=== PATIENT | male | born 1955 | race Caucasian/White ===

== ENCOUNTER 2017-08-15 17:35 | Inpatient (IN) | payer MEDICARE ==
[2017-08-15] MEDS ORDERED: NORMAL SALINE 1000 ML 1,000 ML IV ONE (17:40)
--- NOTE | 2017-08-15 17:43 | ER Document Report ---
ED Respiratory Problem - General Mode of Arrival: Medic Information source: Patient, Emergency Med Personnel TRAVEL OUTSIDE OF THE [place] IN LAST 30 DAYS: No - HPI Patient complains to provider of: Other - see notes above Onset: This morning Associated symptoms: Other - see notes above <TYSON ABEBE - Last Filed: 08/15/17 20:12> <KALIKAMAR GINNY - Last Filed: 08/16/17 01:18> - General Chief Complaint: Respiratory Distress Stated Complaint: RESPIRATORY DISTRESS Time Seen by Provider: 08/15/17 17:40 Notes: 61 year old male with history of hypertension and back surgery presents to the ED via EMS initially unresponsive and on a non-rebreather. EMS reports that the patient was unresponsive and had a green-brown froth at this mouth when they first arrived. Patient stating at 70% initially with improvement to 98% with a non-rebreather. Patient was occasionally twitching, but was not alert. Family states that the patient has overdosed on morphine in the past due to his back pain. EMS gave 1 mg Narcan. Upon moving the patient from EMS stretcher to ED bed, the patient became alert and orientated. (TYSON ABEBE) - Related Data Allergies/Adverse Reactions: No Known Allergies Allergy (Verified 08/15/17 19:55) Home Medications: Current Home Medications Gabapentin [Neurontin 400 mg Capsule] 800 mg PO QHS 08/15/17 [History] Morphine Sulfate 15 mg PO BID 08/15/17 [History] Morphine Sulfate [Morphine Sulfate ER] 15 mg PO Q8 08/15/17 [History] Morphine Sulfate/Naltrexone [Embeda ER 20-0.8 mg Capsule] 20 mg PO BID 08/15/17 [History] Morphine Sulfate/Naltrexone [Embeda ER 20-0.8 mg Capsule] 20 mg PO Q12 08/15/17 [History] Past Medical History - General Information source: Patient - Social History Smoking Status: Unknown if Ever Smoked Family History: Reviewed & Not Pertinent - Past Medical History Cardiac Medical History: Reports: Hx Hypertension Denies: Hx Coronary Artery Disease, Hx Heart Attack Pulmonary Medical History: Denies: Hx Asthma, Hx Bronchitis, Hx COPD, Hx Pneumonia Neurological Medical History: Denies: Hx Cerebrovascular Accident, Hx Seizures Musculoskeltal Medical History: Denies Hx Arthritis Past Surgical History: Reports: Hx Orthopedic Surgery - Back Surgery x6 - Immunizations Hx Diphtheria, Pertussis, Tetanus Vaccination: No Hx Pneumococcal Vaccination: 08/17/11 <TYSON ABEBE - Last Filed: 08/15/17 20:12> Review of Systems - Review of Systems Constitutional: No symptoms reported EENT: No symptoms reported Cardiovascular: No symptoms reported Respiratory: See HPI, Other - respiratory distress Gastrointestinal: No symptoms reported Genitourinary: No symptoms reported Male Genitourinary: No symptoms reported Musculoskeletal: No symptoms reported Skin: No symptoms reported Hematologic/Lymphatic: No symptoms reported Neurological/Psychological: No symptoms reported -: Yes All other systems reviewed and negative <TYSON ABEBE - Last Filed: 08/15/17 20:12> Physical Exam - Vital signs Interpretation: Hypotensive, Tachycardic, Hypoxic, Febrile - General General appearance: Lethargic - HEENT Head: Normocephalic, Atraumatic Cornea: Normal Extraocular movements intact: Yes Mucous membranes: Dry, Other - Green sputum on tongue - Respiratory Breath sounds: Decreased air movement, Rales - Cardiovascular Rhythm: Regular, Tachycardia - Abdominal Inspection: Normal Tenderness: Nontender - Extremities General upper extremity: Normal strength General lower extremity: Normal strength - Neurological Cognition: Confused [place] Coma Scale Eye Opening: Spontaneous Aravind Coma Scale Verbal: Confused [place] Coma Scale Motor: Obeys Commands [place] Coma Scale Total: 14 - Skin Skin Temperature: Hot Skin Moisture: Dry <KAMAR BASS - Last Filed: 08/16/17 01:18> - Vital signs Vitals: Temp Pulse Resp BP Pulse Ox 100.0 F 119 H 18 94/56 L 96 08/15/17 17:35 08/15/17 17:35 08/15/17 17:35 08/15/17 17:35 08/15/17 17:35 Course - Laboratory Result Diagrams: 08/15/17 17:54 08/15/17 17:54 - Consults Brian Su Time consulted: 18:55 Dr. Denton Time consulted: 19:59 <TYSON ABEBE - Last Filed: 08/15/17 20:12> - Laboratory Result Diagrams: 08/15/17 17:54 08/15/17 21:08 <KAMAR BASS - Last Filed: 12/31/17 01:18> - Re-evaluation Re-evalutation: 08/15 Patient is a 61-year-old male who has been unresponsive for most of the day. Patient is febrile, tachycardic, and hypoxic on presentation. Patient will be given Narcan and bagged before coming in by EMS. He had been unresponsive for EMS but was more responsive in the emergency department albeit confused. Patient was treated on fluids. Blood work is showing acute renal insufficiency as well as rhabdomyolysis. Patient has a right-sided pneumonia and appears septic. Patient was discussed with Brian Su due to lack of nephrology. However, the patient is making urine and creatinine injury resolving. The patient does not want to be transferred and will be admitted to the hospitalist service here. He has been given antibiotics and fluids. His mentation is much improved although he has been persistently hypotensive. After 3 L of fluid pressures are 100s over 60s. Patient is in no respiratory distress and is resting on nasal cannula. Discussed with the hospitalist service will be admitted to the ICU. (KAMAR BASS) - Vital Signs Vital signs: Temp Pulse Resp BP Pulse Ox 101.1 F H 119 H 23 H 79/47 L 100 08/15/17 18:26 08/15/17 17:35 08/15/17 18:54 08/15/17 18:54 08/15/17 18:54 - Laboratory Laboratory results interpreted by me: 08/15/17 08/15/17 08/15/17 17:54 17:54 17:54 WBC 12.0 H RBC 4.30 L Hgb 13.3 L RDW 14.1 H Seg Neutrophils % 81.4 H Lymphocytes % 11.0 L Absolute Neutrophils 9.8 H VBG pH VBG HCO3 Chloride Carbon Dioxide 21 L BUN 43 H Creatinine 6.87 H Est GFR ( Amer) 10 L Est GFR (Non-Af Amer) 8 L Glucose Lactic Acid 2.2 H Calcium Phosphorus AST 327 H ALT 82 H Creatine Kinase 85443 H Urine Protein Urine Urobilinogen 08/15/17 08/15/17 08/15/17 18:26 21:08 21:08 WBC RBC Hgb RDW Seg Neutrophils % Lymphocytes % Absolute Neutrophils VBG pH VBG HCO3 Chloride 109 H Carbon Dioxide 18 L BUN 40 H Creatinine 5.54 H Est GFR ( Amer) 13 L Est GFR (Non-Af Amer) 11 L Glucose 122 H Lactic Acid Calcium 7.3 L Phosphorus 5.3 H AST ALT Creatine Kinase 28296 H Urine Protein 30 H Urine Urobilinogen 2.0 H 08/15/17 22:00 WBC RBC Hgb RDW Seg Neutrophils % Lymphocytes % Absolute Neutrophils VBG pH 7.24 L VBG HCO3 17.7 L Chloride Carbon Dioxide BUN Creatinine Est GFR ( Amer) Est GFR (Non-Af Amer) Glucose Lactic Acid Calcium Phosphorus AST ALT Creatine Kinase Urine Protein Urine Urobilinogen - Consults Brina Su Reason for consultation: 08/15/17 18:55 Brian Su was paged for patient transfer. (TYSON ABEBE) Dr. Denton Reason for consultation: 08/15/17 19:59 Patient was discussed with Dr. Denton who states that she may keep the patient here pending the results of an additional BMP, troponin, and creatinine. (TYSON ABEBE) Critical Care Note - Critical Care Note Total time excluding time spent on procedures (mins): 90 - Evaluation and management of altered mental status, respiratory distress, sepsis, acute renal insufficiency, rhabdomyolysis, multiple re-evaluations, coordination of admission, counseling of patient and family <KAMAR BASS - Last Filed: 08/16/17 01:18> Discharge <TYSON ABEBE - Last Filed: 08/15/17 20:12> - Discharge Admitting Provider: Concepción Denton Unit Admitted: ICU <KAMAR BASS - Last Filed: 08/16/17 01:18> - Discharge Clinical Impression: Pneumonia Qualifiers: Pneumonia type: due to unspecified organism Laterality: right Lung location: lower lobe of lung Qualified Code(s): J18.1 - Lobar pneumonia, unspecified organism ARF (acute renal failure) Qualifiers: Acute renal failure type: unspecified Qualified Code(s): N17.9 - Acute kidney failure, unspecified Sepsis Qualifiers: Sepsis type: sepsis due to unspecified organism Qualified Code(s): A41.9 - Sepsis, unspecified organism Rhabdomyolysis Qualifiers: Rhabdomyolysis type: non-traumatic Qualified Code(s): M62.82 - Rhabdomyolysis Condition: Stable Disposition: ADMITTED INPATIENT Scribe Attestation: 08/16/17 01:18 I personally performed the services described in the documentation, reviewed and edited the documentation which was dictated to the scribe in my presence, and it accurately records my words and actions. (KAMAR BASS) Scribe Documentation - Scribe Written by Scribe:: Turner Cadet, 08/15/2017 1833 acting as scribe for :: Kali <TYSON ABEBE - Last Filed: 08/15/17 20:12>
[2017-08-15 18:18] LABS: INTERNATIONAL RATION (INR) 1.04; PROTHROMBIN TIME 14.4 SEC (11.4-15.4)
[2017-08-15 18:20] LABS: ABSOLUTE LYMPHOCYTES (AUTO) 1.3 10^3/uL (0.5-4.7); ABSOLUTE MONOCYTES (AUTO) 0.9 10^3/uL (0.1-1.4); ABSOLUTE NEUT (AUTO) 9.8 10^3/uL (1.7-8.2); BASOPHILS % (AUTO) 0.2 % (0-2); EOSINOPHILS % (AUTO) 0.1 % (0-6); HEMATOCRIT 39.3 % (37.9-51.0); HEMOGLOBIN 13.3 g/dL (13.5-17.0); MEAN CORPUSCULAR HEMOGLOBIN 30.8 pg (27.0-33.4); MEAN CORPUSCULAR HGB CONC 33.7 g/dL (32.0-36.0); MEAN CORPUSCULAR VOLUME 91 fl (80-97); MONOCYTES % (AUTO) 7.3 % (3-13); PLATELET COUNT 225 10^3/uL (150-450); RED CELL DISTRIBUTION WIDTH 14.1 % (11.5-14.0); SEGMENTED NEUTROPHILS % (AUTO) 81.4 % (42-78); TOTAL CELLS COUNTED % (AUTO) 100 %
[2017-08-15] MEDS ORDERED: NALOXONE HCL INJ 2 MG/2 ML DISP.SYRIN IV ONE (18:26)
[2017-08-15] MEDS ORDERED: NALOXONE HCL INJ 2 MG/2 ML DISP.SYRIN ONE (18:29)
[2017-08-15 18:36] LABS: ALANINE AMINOTRANSFERASE 82 U/L (21-72); ALBUMIN 3.8 g/dL (3.5-5.0); ALKALINE PHOSPHATASE 90 U/L (38-126); ANION GAP 14 (5-19); ASPARTATE AMINO TRANSFERASE 327 U/L (17-59); BILIRUBIN,DIRECT 0.4 mg/dL (0.0-0.4); BILIRUBIN,TOTAL 1.1 mg/dL (0.2-1.3); BLOOD UREA NITROGEN 43 mg/dL (7-20); CALCIUM 8.7 mg/dL (8.4-10.2); CARBON DIOXIDE 21 mmol/L (22-30); CHLORIDE 103 mmol/L (98-107); GLUCOSE 105 mg/dL (75-110); POTASSIUM 4.5 mmol/L (3.6-5.0); SODIUM 137.7 mmol/L (137-145); TOTAL PROTEIN 6.9 g/dL (6.3-8.2)
[2017-08-15] MEDS ORDERED: PIPERACILLIN/TAZOBACTAM 3.375 GM VIAL IV ONE (18:53)
[2017-08-15 18:55] LABS: CREATINE KINASE 13010 U/L (55-170)
[2017-08-15] MEDS ORDERED: VANCOMYCIN HCL INJ 1000 MG VIAL IV ONE (18:55)
[2017-08-15] MEDS ORDERED: ACETAMINOPHEN 325 MG TABLET PO ONE (18:55)
[2017-08-15] MEDS ORDERED: ACETAMINOPHEN 325 MG SUPP.RECT PR ONE (18:58)
[2017-08-15] MEDS: NORMAL SALINE 1000 ML 1,000 ML IV PRN (19:04)
[2017-08-15 19:12] LABS: APPEARANCE,URINE SLIGHTLY-CLOUDY; BILIRUBIN,URINE NEGATIVE (NEGATIVE); COLOR,URINE AMBER; GLUCOSE, URINE NEGATIVE (NEGATIVE); KETONES,URINE NEGATIVE (NEGATIVE); LEUKOCYTE ESTERASE,URINE NEGATIVE (NEGATIVE); NITRITE,URINE NEGATIVE (NEGATIVE); PROTEIN,URINE 30 mg/dL (NEGATIVE); URINE SPECIFIC GRAVITY 1.021
--- NOTE | 2017-08-15 19:43 | RADIOLOGY REPORT (SQ) ---
EXAM DESCRIPTION: CHEST SINGLE VIEW COMPLETED DATE/TIME: 08/15/2017 6:59 pm REASON FOR STUDY: cough COMPARISON: None. EXAM PARAMETERS: NUMBER OF VIEWS: One view. TECHNIQUE: Single frontal radiographic view of the chest acquired. RADIATION DOSE: NA LIMITATIONS: Respiratory motion somewhat limits examination. FINDINGS: LUNGS AND PLEURA: No opacities, masses or pneumothorax. No pleural effusion. MEDIASTINUM AND HILAR STRUCTURES: No masses. Contour normal. HEART AND VASCULAR STRUCTURES: Heart normal in size. Normal vasculature. BONES: No acute findings. HARDWARE: Partially imaged ACDF hardware. OTHER: No other significant finding. IMPRESSION: NO ACUTE RADIOGRAPHIC FINDING IN THE CHEST. TECHNICAL DOCUMENTATION: JOB ID: [id number] [employer]- All Rights Reserved
[2017-08-15] MEDS ORDERED: PROMETHAZINE HCL 25 MG TABLET PO PRN (21:38)
[2017-08-15] MEDS ORDERED: LEVALBUTEROL HCL NEB 1.25 MG/3 ML AMPUL NEB PRN (21:38)
[2017-08-15] MEDS ORDERED: ONDANSETRON HCL INJ/PF 4 MG/2 ML SDV IV PRN (21:38)
[2017-08-15] MEDS ORDERED: OXYCODONE-ACETAMINOPHEN 5-325 MG TABLET PO PRN (21:38)
[2017-08-15] MEDS ORDERED: ACETAMINOPHEN 325 MG TABLET PO PRN (21:38)
[2017-08-15 21:40] LABS: ANION GAP 11 (5-19); BLOOD UREA NITROGEN 40 mg/dL (7-20); CALCIUM 7.3 mg/dL (8.4-10.2); CARBON DIOXIDE 18 mmol/L (22-30); CHLORIDE 109 mmol/L (98-107); GLUCOSE 122 mg/dL (75-110); POTASSIUM 4.1 mmol/L (3.6-5.0); SODIUM 137.8 mmol/L (137-145)
[2017-08-15 21:57] LABS: CREATINE KINASE 13972 U/L (55-170)
[2017-08-15] MEDS ORDERED: GABAPENTIN 400 MG CAPSULE PO SCH (22:00)
[2017-08-15 22:13] LABS: MAGNESIUM 1.7 mg/dL (1.6-2.3); PHOSPHORUS 5.3 mg/dL (2.5-4.5)
[2017-08-15] MEDS ORDERED: LIDOCAINE 5% (700 MG) TRANSDERMAL ADH..PATCH TP ONE (22:15)
[2017-08-15 22:21] LABS: VENOUS BLOOD BASE EXCESS -9.3 mmol/L; VENOUS BLOOD HCO3 17.7 mmol/L (20-32); VENOUS BLOOD PCO2 42.4 mmHg (35-63); VENOUS BLOOD PH 7.24 (7.30-7.42)
[2017-08-16] MEDS: NORMAL SALINE 1000 ML 1,000 ML IV PRN ×4 (00:48→08:51)
[2017-08-16] MEDS: HEPARIN SOD (PORCINE) 5,000 UNIT/ML 1 ML SYRINGE SUBCUT SCH ×4 (00:50→21:56)
[2017-08-16] MEDS ORDERED: NORMAL SALINE 1000 ML 1,000 ML IV ONE (00:57)
[2017-08-16] MEDS ORDERED: NOREPINEPHRINE BITARTRATE INJ/PF 4 MG/4 ML SDV IV ONE (01:17)
[2017-08-16] MEDS: IPRATROPIUM/ALBUTEROL 0.5-2.5 MG/3 ML AMPUL NEB SCH ×4 (01:24→19:55)
[2017-08-16] MEDS ORDERED: NOREPINEPHRINE BITARTRATE INJ/PF 4 MG/4 ML SDV IV PRN (01:36)
[2017-08-16] MEDS ORDERED: LIDOCAINE 5% (700 MG) TRANSDERMAL ADH..PATCH TP ONE (01:45)
[2017-08-16] MEDS ORDERED: MAGNESIUM SULFATE/D5W 1 GM/100 ML RTUPB IV ONE (02:36)
[2017-08-16] MEDS ORDERED: PHARMACY COMMUNICATION ORDER MC NR (02:45)
[2017-08-16] MEDS ORDERED: VANCOMYCIN HCL 0 MG in DEXTROSE 5%-WATER 250 ML IV NR (02:45)
[2017-08-16] MEDS ORDERED: PIPERACILLIN/TAZOBACTAM 3.375 GM VIAL IV PRN (02:45)
[2017-08-16] MEDS ORDERED: VANCOMYCIN HCL INJ 1000 MG VIAL IV PRN (02:50)
[2017-08-16] MEDS: PIPERACILLIN SODIUM/TAZOBACTAM 3.375 GM in NORMAL SALINE 100 ML IV SCH ×2 (03:25→09:12)
[2017-08-16] MEDS: DEXTROSE 5%-WATER 250 ML with NOREPINEPHRINE BITARTRATE 4 MG IV PRN ×4 (03:25→08:52)
--- NOTE | 2017-08-16 03:40 | PDOC H&P ---
History of Present Illness Admission Date/PCP: 08/15/2017 Dr. Guadarrama, [facility] History of Present Illness: CARMELA LOMAX is a 61 year old male with past medical history of chronic back pain , hypertension, and diabetes prior to his gastric bypass who presents to the emergency department unresponsive. When I visit patient, he is awake alert and oriented and appropriate. Patient's family was unable to arouse him today. He reports starting on Thursday he noticed that he was significantly weak and unable to walk. He thought his back was acting up. He did report a cough with some yellow brown sputum. He took his normal medications today and became unresponsive. He did require Narcan and some bagging by EMS. The patient was never at a loss for spontaneous circulation. Patient does currently report pain in his back and legs. And that he has been weak and dizzy. He reports he had a normal stress test approximately 6 months ago in [place]. Patient is found to be in acute renal failure, with pneumonia and septic shock requiring admission to the ICU. Past Medical History Cardiac Medical History: Reports: Hypertension Denies: Coronary Artery Disease, Myocardial Infarction Pulmonary Medical History: Denies: Asthma, Bronchitis, Chronic Obstructive Pulmonary Disease (COPD), Pneumonia Neurological Medical History: Denies: Seizures Endocrine Medical History: Reports: Diabetes Mellitus Type 2 - Prior to gastric bypass, Obesity Musculoskeltal Medical History: Reports: Other - Chronic back pain Denies: Arthritis Hematology: Denies: Anemia Past Surgical History Past Surgical History: Reports: Cholecystectomy, Gastric Bypass Surgery, Orthopedic Surgery - Back Surgery x6 Social History Smoking Status: Never Smoker Frequency of Alcohol Use: None Hx Recreational Drug Use: No Hx Prescription Drug Abuse: No - Advance Directive Resuscitation Status: Full Code Surrogate healthcare decision maker:: , Zoya Lomax Family History Family History: CAD, Malignancy, Other - ALS-brother Parental Family History Reviewed: Yes Children Family History Reviewed: Yes Sibling(s) Family History Reviewed.: Yes Medication/Allergy Home Medications: Lisinopril 1 tab PO DAILY 03/08/14 Gabapentin [Neurontin 400 mg Capsule] 800 mg PO QHS 08/15/17 Morphine Sulfate 15 mg PO BID 08/15/17 Morphine Sulfate [Morphine Sulfate ER] 15 mg PO Q8 08/15/17 Morphine Sulfate/Naltrexone [Embeda ER 20-0.8 mg Capsule] 20 mg PO BID 08/15/17 Morphine Sulfate/Naltrexone [Embeda ER 20-0.8 mg Capsule] 20 mg PO Q12 08/15/17 Allergies/Adverse Reactions: No Known Allergies Allergy (Verified 08/15/17 19:55) Review of Systems Constitutional: PRESENT: fatigue, weakness. ABSENT: chills, fever(s), headache( s), weight gain, weight loss Eyes: ABSENT: visual disturbances Ears: ABSENT: hearing changes Cardiovascular: ABSENT: chest pain, dyspnea on exertion, edema, orthropnea, palpitations Respiratory: PRESENT: cough, sputum. ABSENT: dyspnea, hemoptysis Gastrointestinal: ABSENT: abdominal pain, constipation, diarrhea, hematemesis, hematochezia, nausea, vomiting Genitourinary: ABSENT: dysuria, hematuria Musculoskeletal: PRESENT: back pain. ABSENT: joint swelling Integumentary: ABSENT: rash, wounds Neurological: PRESENT: dizziness, weakness. ABSENT: abnormal gait, abnormal speech, confusion, focal weakness, syncope Psychiatric: ABSENT: anxiety, depression, homidical ideation, suicidal ideation Endocrine: ABSENT: cold intolerance, heat intolerance, polydipsia, polyuria Hematologic/Lymphatic: ABSENT: easy bleeding, easy bruising Physical Exam Vital Signs: Temp Pulse Resp BP Pulse Ox 101.1 F H 119 H 23 H 79/47 L 100 08/15/17 18:26 08/15/17 17:35 08/15/17 18:54 08/15/17 18:54 08/15/17 18:54 Intake & Output 08/14/17 08/15/17 08/16/17 06:59 06:59 06:59 Weight 106.5 kg General appearance: PRESENT: mild distress, obese, well-developed, well- nourished Head exam: PRESENT: atraumatic, normocephalic Eye exam: PRESENT: conjunctival injection, conjunctiva pink, EOMI, PERRLA. ABSENT: scleral icterus Ear exam: PRESENT: normal external ear exam Mouth exam: PRESENT: dry mucosa, tongue midline Neck exam: ABSENT: JVD, lymphadenopathy, thyromegaly, tracheal deviation Respiratory exam: PRESENT: rhonchi, symmetrical, unlabored. ABSENT: accessory muscle use, prolonged expiratory phas, rales, tachypnea, wheezes Cardiovascular exam: PRESENT: RRR. ABSENT: diastolic murmur, rubs, systolic murmur Pulses: PRESENT: normal dorsalis pedis pul Vascular exam: PRESENT: normal capillary refill GI/Abdominal exam: PRESENT: normal bowel sounds, soft. ABSENT: distended, guarding, mass, Lin's sign, organolmegaly, rebound, rigid, tenderness Rectal exam: PRESENT: deferred Extremities exam: PRESENT: full ROM. ABSENT: calf tenderness, clubbing, pedal edema Neurological exam: PRESENT: alert, awake, oriented to person, oriented to place , oriented to time, oriented to situation, CN II-XII grossly intact. ABSENT: motor sensory deficit Psychiatric exam: PRESENT: appropriate affect, normal mood. ABSENT: homicidal ideation, suicidal ideation Skin exam: PRESENT: dry, intact, warm. ABSENT: cyanosis, rash Results Laboratory Results: 08/15/17 17:54 08/15/17 08/15/17 08/15/17 17:54 17:54 17:54 WBC 12.0 H RBC 4.30 L Hgb 13.3 L Hct 39.3 MCV 91 MCH 30.8 MCHC 33.7 RDW 14.1 H Plt Count 225 Seg Neutrophils % 81.4 H Lymphocytes % 11.0 L Monocytes % 7.3 Eosinophils % 0.1 Basophils % 0.2 Absolute Neutrophils 9.8 H Absolute Lymphocytes 1.3 Absolute Monocytes 0.9 Absolute Eosinophils 0.0 Absolute Basophils 0.0 Sodium 137.7 Potassium 4.5 Chloride 103 Carbon Dioxide 21 L Anion Gap 14 BUN 43 H Creatinine 6.87 H Est GFR ( Amer) 10 L Est GFR (Non-Af Amer) 8 L Glucose 105 Lactic Acid 2.2 H Calcium 8.7 Total Bilirubin 1.1 AST 327 H ALT 82 H Alkaline Phosphatase 90 Total Protein 6.9 Albumin 3.8 Urine Color Urine Appearance Urine pH Ur Specific [place] Urine Protein Urine Glucose (UA) Urine Ketones Urine Blood Urine Nitrite Ur Leukocyte Esterase Urine WBC (Auto) Urine RBC (Auto) 08/15/17 18:26 WBC RBC Hgb Hct MCV MCH MCHC RDW Plt Count Seg Neutrophils % Lymphocytes % Monocytes % Eosinophils % Basophils % Absolute Neutrophils Absolute Lymphocytes Absolute Monocytes Absolute Eosinophils Absolute Basophils Sodium Potassium Chloride Carbon Dioxide Anion Gap BUN Creatinine Est GFR ( Amer) Est GFR (Non-Af Amer) Glucose Lactic Acid Calcium Total Bilirubin AST ALT Alkaline Phosphatase Total Protein Albumin Urine Color NOEMY Urine Appearance SLIGHTLY-CLOUDY Urine pH 5.0 Ur Specific [place] 1.021 Urine Protein 30 H Urine Glucose (UA) NEGATIVE Urine Ketones NEGATIVE Urine Blood NEGATIVE Urine Nitrite NEGATIVE Ur Leukocyte Esterase NEGATIVE Urine WBC (Auto) 1 Urine RBC (Auto) 0 08/15/17 08/15/17 17:54 17:54 Creatine Kinase 01507 H Troponin I 0.508 Impressions: Chest X-Ray 08/15/17 17:40 IMPRESSION: NO ACUTE RADIOGRAPHIC FINDING IN THE CHEST. Assessment & Plan - Diagnosis (1) Septic shock Is this a current diagnosis for this admission?: Yes Plan: Patient has received a total of 6 L of normal saline bolus and has had IV fluids running at 200 mL an hour. Patient is still hypotensive with a systolic in the 80s and a map in the low 60s requiring the administration of Levophed. Patient will be placed in the ICU. Patient has been started on broad-spectrum antibiotic therapy for his pneumonia. Maintain map greater than 65. Selected Entries 08/15/17 08/15/17 17:35 17:43 Temperature 100.0 F Pulse Rate [ 119 H Left Finger] Respiratory 22 H Rate Blood Pressure 94/56 L [Right Upper Arm] 08/15/17 08/15/17 08/15/17 17:54 17:54 17:54 WBC 12.0 H Lactic Acid 2.2 H AST 327 H ALT 82 H (2) Pneumonia Qualifiers: Pneumonia type: due to unspecified organism Laterality: right Lung location: lower lobe of lung Qualified Code(s): J18.1 - Lobar pneumonia, unspecified organism Is this a current diagnosis for this admission?: Yes Plan: Place patient on scheduled nebulized treatments and re-evaluate for improvement. PRN Xopenex Place patient on Zosyn and Vancomycin due to his septic shock Obtain sputum culture (3) ARF (acute renal failure) Qualifiers: Acute renal failure type: with acute tubular necrosis Qualified Code(s): N17.0 - Acute kidney failure with tubular necrosis Is this a current diagnosis for this admission?: Yes Plan: Nonoliguric Likely ATN secondary to sepsis and dehydration. Place patient on IV fluids and repeat creatinine repeat creatinine after IV fluid administration in the ED showed improved interval improvement 08/15/17 08/15/17 17:54 21:08 Creatinine 6.87 H 5.54 H (4) Rhabdomyolysis Qualifiers: Rhabdomyolysis type: non-traumatic Qualified Code(s): M62.82 - Rhabdomyolysis Is this a current diagnosis for this admission?: Yes Plan: Monitor patient on telemetry for arrhythmia Check serial CK Monitor patient for electrolyte abnormalities Normal saline at 200 mL/h 08/15/17 08/15/17 17:54 21:08 Creatine Kinase 14843 H 61044 H (5) Elevated troponin I level Is this a current diagnosis for this admission?: Yes Plan: In the setting of sepsis, pneumonia, renal failure and in the absence of chest pain or EKG changes, suspect this is likely secondary to these underlying processes. Will consult cardiology (6) Severe obesity (BMI 35.0-35.9 with comorbidity) Is this a current diagnosis for this admission?: Yes (7) gi ppx Is this a current diagnosis for this admission?: Yes Plan: Prevacid (8) dvt ppx Is this a current diagnosis for this admission?: Yes Plan: Heparin and SCDs (9) Chronic back pain Qualifiers: Back pain location: low back pain Back pain laterality: unspecified Sciatica presence: unspecified whether sciatica present Qualified Code(s): M54.5 - Low back pain; G89.29 - Other chronic pain; G89.29 - Other chronic pain Is this a current diagnosis for this admission?: Yes Plan: At this time, patient understands that we are unable to reinitiate his narcotic therapy due to his blood pressure (10) Chronic prescription opiate use Is this a current diagnosis for this admission?: Yes Plan: Hold narcotics at this time secondary to hypotension (11) Status post gastric bypass for obesity Is this a current diagnosis for this admission?: Yes - Time Time Spent: 50 to 70 Minutes Critical Time spent with patient: 35 or more minutes - Total time spent with patient including patient education, physical examination, discussion with consultants, and formulation of plan was 45 minutes of critical care time. Medications reviewed and adjusted accordingly: Yes - Inpatient Certification Based on my medical assessment, after consideration of the patient's comorbidities, presenting symptoms, or acuity I expect that the services needed warrant INPATIENT care.: Yes I certify that my determination is in accordance with my understanding of Medicare's requirements for reasonable and necessary INPATIENT services [42 CFR 412.3e].: Yes Medical Necessity: Need For IV Fluids, Need For Continuous Telemetry Monitoring , Need for IV Antibiotics Post Hospital Care: D/C Field Insurance Sales Manager Documentation
[2017-08-16] MEDS ORDERED: VANCOMYCIN HCL 2,000 MG in DEXTROSE 5%-WATER 500 ML IV ONE (04:00)
[2017-08-16 04:10] LABS: INTERNATIONAL RATION (INR) 1.22; PROTHROMBIN TIME 16.2 SEC (11.4-15.4)
[2017-08-16 04:18] LABS: ABSOLUTE LYMPHOCYTES (AUTO) 1.1 10^3/uL (0.5-4.7); ABSOLUTE MONOCYTES (AUTO) 1.2 10^3/uL (0.1-1.4); ABSOLUTE NEUT (AUTO) 9.6 10^3/uL (1.7-8.2); BASOPHILS % (AUTO) 0.1 % (0-2); EOSINOPHILS % (AUTO) 0.3 % (0-6); HEMATOCRIT 31.7 % (37.9-51.0); LYMPHOCYTES % (AUTO) 9.4 % (13-45); MEAN CORPUSCULAR HEMOGLOBIN 31.2 pg (27.0-33.4); MEAN CORPUSCULAR HGB CONC 33.9 g/dL (32.0-36.0); MEAN CORPUSCULAR VOLUME 92 fl (80-97); MONOCYTES % (AUTO) 10.1 % (3-13); PLATELET COUNT 170 10^3/uL (150-450); RED BLOOD COUNT 3.44 10^6/uL (4.35-5.55); RED CELL DISTRIBUTION WIDTH 13.8 % (11.5-14.0); SEGMENTED NEUTROPHILS % (AUTO) 80.1 % (42-78); TOTAL CELLS COUNTED % (AUTO) 100 %
[2017-08-16 04:20] LABS: HEMOGLOBIN 10.7 g/dL (13.5-17.0)
[2017-08-16 04:51] LABS: ANION GAP 13 (5-19); BLOOD UREA NITROGEN 40 mg/dL (7-20); CALCIUM 7.4 mg/dL (8.4-10.2); CARBON DIOXIDE 18 mmol/L (22-30); CHLORIDE 109 mmol/L (98-107); GLUCOSE 130 mg/dL (75-110); MAGNESIUM 1.8 mg/dL (1.6-2.3); PHOSPHORUS 5.5 mg/dL (2.5-4.5); SODIUM 139.5 mmol/L (137-145)
[2017-08-16 04:58] LABS: POTASSIUM 3.9 mmol/L (3.6-5.0)
[2017-08-16 05:00] LABS: CREATINE KINASE MB 90.4 ng/mL (<4.55)
[2017-08-16 05:05] LABS: TROPONIN I 0.451 ng/mL
[2017-08-16] MEDS: LANSOPRAZOLE 15 MG TAB.RAP.DR PO SCH (06:44)
--- NOTE | 2017-08-16 08:44 | PDOC PROGRESS REPORT ---
Subjective Progress Note for:: 08/16/17 Subjective:: Patient relates that had been weak and unable to bear weight. He laid down on the couch and his had to slap him because he was unresponsive. His granddaughter check his blood pressure and was not able to get a reading therefore EMS was called. Patient admits that he had been having some productive cough. At the present time feels a lot better when compared to arrival Reason For Visit: SEVERE SEPSIS,PNEUMONIA,RHABDOMYOLYSIS Physical Exam Vital Signs: Temp Pulse Resp BP Pulse Ox 98.1 F 84 8 L 113/59 L 95 08/16/17 06:08 08/16/17 03:03 08/16/17 06:08 08/16/17 06:08 08/16/17 06:08 Intake & Output 08/15/17 08/16/17 08/17/17 06:59 06:59 06:59 Intake Total 8386 Output Total 1250 Balance 7136 Weight 112.1 kg General appearance: PRESENT: no acute distress, morbidly obese Head exam: PRESENT: atraumatic, normocephalic Eye exam: PRESENT: EOMI Ear exam: PRESENT: normal external ear exam Mouth exam: PRESENT: moist Neck exam: PRESENT: full ROM. ABSENT: JVD, tenderness Respiratory exam: PRESENT: clear to auscultation bere Cardiovascular exam: PRESENT: RRR. ABSENT: diastolic murmur, systolic murmur Vascular exam: PRESENT: normal capillary refill GI/Abdominal exam: PRESENT: normal bowel sounds, soft. ABSENT: tenderness Extremities exam: PRESENT: full ROM. ABSENT: joint swelling, pedal edema Neurological exam: PRESENT: alert, awake, oriented to person, oriented to place , oriented to time Psychiatric exam: PRESENT: appropriate affect, normal mood Results Laboratory Results: 08/16/17 03:47 08/16/17 03:47 08/16/17 08/16/17 03:47 03:47 WBC 12.0 H RBC 3.44 L Hgb 10.7 L D Hct 31.7 L MCV 92 MCH 31.2 MCHC 33.9 RDW 13.8 Plt Count 170 Seg Neutrophils % 80.1 H Lymphocytes % 9.4 L Monocytes % 10.1 Eosinophils % 0.3 Basophils % 0.1 Absolute Neutrophils 9.6 H Absolute Lymphocytes 1.1 Absolute Monocytes 1.2 Absolute Eosinophils 0.0 Absolute Basophils 0.0 Sodium 139.5 Potassium 3.9 Chloride 109 H Carbon Dioxide 18 L Anion Gap 13 BUN 40 H Creatinine 5.02 H Est GFR ( Amer) 14 L Est GFR (Non-Af Amer) 12 L Glucose 130 H Calcium 7.4 L Phosphorus 5.5 H Magnesium 1.8 08/16/17 08/16/17 03:47 03:47 Creatine Kinase 42649 H CK-MB (CK-2) 90.40 H Troponin I 0.451 Impressions: Chest X-Ray 08/15/17 17:40 IMPRESSION: NO ACUTE RADIOGRAPHIC FINDING IN THE CHEST. Assessment & Plan - Diagnosis (1) ARF (acute renal failure) Qualifiers: Acute renal failure type: with acute tubular necrosis Qualified Code(s): N17.0 - Acute kidney failure with tubular necrosis Is this a current diagnosis for this admission?: Yes Plan: Continue volume repletion and will trend renal function (2) Chronic back pain Qualifiers: Back pain location: low back pain Back pain laterality: unspecified Sciatica presence: unspecified whether sciatica present Qualified Code(s): M54.5 - Low back pain; G89.29 - Other chronic pain; G89.29 - Other chronic pain Is this a current diagnosis for this admission?: Yes Plan: At the present time stable will use judiciously opioid if needed. (3) Chronic prescription opiate use Is this a current diagnosis for this admission?: Yes Plan: Will use opioids judiciously if needed (4) Elevated troponin I level Is this a current diagnosis for this admission?: Yes Plan: May relate to myocardial oxygen demand ischemia in the setting of septic shock (5) Pneumonia Qualifiers: Pneumonia type: due to unspecified organism Laterality: right Lung location: lower lobe of lung Qualified Code(s): J18.1 - Lobar pneumonia, unspecified organism Is this a current diagnosis for this admission?: Yes Plan: Official chest x-ray report is negative however we will go ahead and order a CT of the chest. Will continue with current antibiotic therapy (6) Rhabdomyolysis Qualifiers: Rhabdomyolysis type: non-traumatic Qualified Code(s): M62.82 - Rhabdomyolysis Is this a current diagnosis for this admission?: Yes Plan: Continue with fluids at current rate and will trend CPK (7) Septic shock Is this a current diagnosis for this admission?: Yes Plan: Improved when compared to admission. Still requiring Levophed and fluids (8) Transaminitis Plan: Concern about ischemic hepatitis in the setting of septic shock. Another possibility may be due to hepatic liver after gastric bypass. Will order a CT of the abdomen (9) Malnutrition following gastrointestinal surgery Is this a current diagnosis for this admission?: Yes Plan: We will consult dietitian - Time Time Spent with patient: 15-24 minutes Medications reviewed and adjusted accordingly: Yes Anticipated discharge: Home - Inpatient Certification Based on my medical assessment, after consideration of the patient's comorbidities, presenting symptoms, or acuity I expect that the services needed warrant INPATIENT care.: Yes I certify that my determination is in accordance with my understanding of Medicare's requirements for reasonable and necessary INPATIENT services [42 CFR 412.3e].: Yes Medical Necessity: Need For IV Fluids, Need for IV Antibiotics
[2017-08-16 09:22] LABS: PHOSPHORUS 4.5 mg/dL (2.5-4.5)
[2017-08-16 09:33] LABS: CREATINE KINASE MB 92.2 ng/mL (<4.55); TROPONIN I 0.319 ng/mL
[2017-08-16] MEDS ORDERED: LIDOCAINE 5% (700 MG) TRANSDERMAL ADH..PATCH TP SCH (10:00)
[2017-08-16] MEDS: DOCUSATE SODIUM 100 MG CAPSULE PO SCH ×2 (10:11→17:47)
--- NOTE | 2017-08-16 10:38 | RADIOLOGY REPORT (SQ) ---
EXAM DESCRIPTION: CT CHEST WITHOUT COMPLETED DATE/TIME: 08/16/2017 9:33 am REASON FOR STUDY: septic shock COMPARISON: None. TECHNIQUE: CT scan performed of the chest without intravenous contrast. Images reviewed with lung, soft tissue and bone windows. Reconstructed coronal and sagittal MPR images reviewed. All images st ored on PACS. All CT scanners at this facility use dose modulation, iterative reconstruction, and/or weight based d osing when appropriate to reduce radiation dose to as low as reasonably achievable (ALARA). [facility]: Dose Right [facility]: CareDose [facility]: Dose Right [facility]: Teradose 4D [facility]: Smart Cumulocity RADIATION DOSE: mGy. LIMITATIONS: No technical limitations. FINDINGS: LUNGS AND PLEURA: Diffuse patchy multifocal ground-glass airspace disease with some tree-i n-bud opacities. No large consolidation, pleural effusion, or pneumothorax. HILAR AND MEDIASTINAL STRUCTURES: No identified masses or abnormal nodes. No obvious aneurysm. HEART AND VASCULAR STRUCTURES: No aneurysm. No pericardial effusion. UPPER ABDOMEN: See separate report of the CT of the abdomen. THYROID AND OTHER SOFT TISSUES: No masses. No adenopathy. BONES: No significant finding. HARDWARE: None in the chest. OTHER: No other significant findings. IMPRESSION: DIFFUSE PATCHY MULTIFOCAL GROUND-GLASS AIRSPACE DISEASE WITH SOME TREE-IN-BUD OPACITIES. DIFFERENTIAL INCLUDES INFECTIOUS/ INFLAMMATORY PNEUMONITIS, ASYMMETRIC PULMONARY EDEMA, AND DEVELOP ING ARDS. TECHNICAL DOCUMENTATION: JOB ID: [id number] Quality ID # [id number]: Final reports with documentation of one or more dose reduction techniques (e.g., Au tomated exposure control, adjustment of the mA and/or kV according to patient size, use of iterative reconstruction technique) 2010 [employer]- All Rights Reserved
--- NOTE | 2017-08-16 10:42 | RADIOLOGY REPORT (SQ) ---
EXAM DESCRIPTION: CT ABD/PELVIS NO ORAL OR IV COMPLETED DATE/TIME: 08/16/2017 9:33 am REASON FOR STUDY: transminits/sepsis COMPARISON: None. TECHNIQUE: CT scan of the abdomen and pelvis performed without intravenous or oral contrast. Images reviewed with lung, soft tissue, and bone windows. Reconstructed coronal and sagittal MPR images revi ewed. All images stored on PACS. All CT scanners at this facility use dose modulation, iterative reconstruction, and/or weight based d osing when appropriate to reduce radiation dose to as low as reasonably achievable (ALARA). [facility]: Dose Right [facility]: CareDose [facility]: Dose Right [facility]: Teradose 4D [facility]: Smart [place] RADIATION DOSE: CT Rad equipment meets quality standard of care and radiation dose reduction techniq ues were employed. CTDIvol: 20.5 mGy. DLP: 1505 mGy-cm.mGy. LIMITATIONS: LIMITED BY LACK OF CONTRAST MATERIAL AND BEAM HARDENING ARTIFACT FROM PATIENT'S UPPER E XTREMITIES AND SURGICAL HARDWARE. FINDINGS: LOWER CHEST: See separate report of the CT of the chest. NON-CONTRASTED LIVER, SPLEEN, ADRENALS: Evaluation limited by lack of IV contrast. No identified sign ificant masses. PANCREAS: No masses. No peripancreatic inflammatory changes. GALLBLADDER: Surgically absent. RIGHT KIDNEY AND URETER: Well circumscribed low density mass(es) statistically most likely to be cyst (s). Assessment limited by lack of iv contrast. No significant calcifications. No hydronephrosis or hydroureter. LEFT KIDNEY AND URETER: No suspicious masses. Assessment limited by lack of IV contrast. No signifi cant calcifications. No hydronephrosis or hydroureter. AORTA AND RETROPERITONEUM: No aneurysm. No retroperitoneal masses or adenopathy. BOWEL AND PERITONEAL CAVITY: No obvious masses or inflammatory changes. No free fluid. APPENDIX: Normal. PELVIS, BLADDER, AND ABDOMINAL WALL:No abnormal masses. No free fluid. Bladder is decompressed with F oley catheter. BONES: No acute fracture or suspicious osseous lesion. Surgical fusion hardware involving all lumbar levels and extending into the sacrum. OTHER: No other significant finding. IMPRESSION: NO DEFINITE ACUTE FINDINGS IDENTIFIED ON THIS NONCONTRAST CT OF THE ABDOMEN AND PELVIS. CHRONIC CHANGES ABOVE. COMMENT: Quality ID # [id number]: Final reports with documentation of one or more dose reduction techniques (e.g., Automated exposure control, adjustment of the mA and/or kV according to patient size, use of iterative reconstruction technique) TECHNICAL DOCUMENTATION: JOB ID: [id number] [employer]- All Rights Reserved
--- NOTE | 2017-08-16 12:47 | EKG REPORT ---
SEVERITY:- BORDERLINE ECG - SINUS RHYTHM VENTRICULAR PREMATURE COMPLEX BORDERLINE T WAVE ABNORMALITIES BORDERLINE PROLONGED QT INTERVAL : Confirmed by: Dang Hackett MD 16-Aug-2017 12:47:21
--- NOTE | 2017-08-16 12:47 | EKG REPORT ---
SEVERITY:- BORDERLINE ECG - SINUS RHYTHM LOW VOLTAGE THROUGHOUT : Confirmed by: Dang Hackett MD 16-Aug-2017 12:47:17
[2017-08-16] MEDS: METHYLPREDNISOLONE INJ 40 MG/1 ML SDV IV SCH ×2 (13:24→21:57)
--- NOTE | 2017-08-16 13:32 | PDOC CONSULTATION ---
Consultation Consult Date: 08/16/17 Attending physician:: BRYCE KIRKLAND Consult reason:: Positive troponin I, hypotension History of Present Illness Admission Date/PCP: 08/15/17 22:11 Patient complains of: Fatigue and tiredness History of Present Illness: CARMELA ANTHONY is a 61 year old male with past medical history of chronic back pain , hypertension, and diabetes prior to his gastric bypass who presents to the emergency department unresponsive. When I visit patient, he is awake alert and oriented and appropriate. Patient's family was unable to arouse him today. He reports starting on Thursday he noticed that he was significantly weak and unable to walk. He thought his back was acting up. He did report a cough with some yellow brown sputum. He took his normal medications today and became unresponsive. He did require Narcan and some bagging by EMS. The patient was never at a loss for spontaneous circulation. Patient does currently report pain in his back and legs. And that he has been weak and dizzy. He reports he had a normal stress test approximately 6 months ago in [place]. Patient is found to be in acute renal failure, with pneumonia and septic shock requiring admission to the ICU. Patient when seen today, looked much improved. He claimed of very high fever and chills. He denied any chest pain. He denied any problems with shortness of breath. He was noted to be on Levophed drip with blood pressure in the low 90s. A stat 2D echo was ordered. Past Medical History Cardiac Medical History: Reports: Hypertension Denies: Coronary Artery Disease, Myocardial Infarction Pulmonary Medical History: Denies: Asthma, Bronchitis, Chronic Obstructive Pulmonary Disease (COPD), Pneumonia Neurological Medical History: Denies: Seizures Endocrine Medical History: Reports: Diabetes Mellitus Type 2 - Prior to gastric bypass, Obesity Musculoskeltal Medical History: Reports: Other - Chronic back pain Denies: Arthritis Hematology: Denies: Anemia Past Surgical History Past Surgical History: Reports: Cholecystectomy, Gastric Bypass Surgery, Orthopedic Surgery - Back Surgery x6 Social History Information Source: Patient Smoking Status: Never Smoker Frequency of Alcohol Use: None Hx Recreational Drug Use: No Drugs: None Hx Prescription Drug Abuse: No - Advance Directive Resuscitation Status: Full Code Surrogate healthcare decision maker:: Patient spouse is the surrogate decision-maker Family History Family History: CAD, Malignancy, Other - ALS-brother Parental Family History Reviewed: Yes Children Family History Reviewed: Yes Sibling(s) Family History Reviewed.: Yes Medication/Allergy Home Medications: Amitriptyline HCl [Elavil 10 Mg Tablet] 10 mg PO QHS 08/16/17 Lisinopril [Prinivil 40 mg Tablet] 40 mg PO DAILY 08/16/17 Morphine Sulfate [Morphine Ir 15 Mg Tablet] 15 mg PO BID MDD SEE PATIENT COMMENTS!! 08/16/17 Morphine Sulfate/Naltrexone [Embeda ER 20-0.8 mg Capsule] 1 each PO Q12 Zolpidem Tartrate [Ambien 5 mg Tablet] 10 mg PO HSP PRN 08/16/17 Allergies/Adverse Reactions: No Known Allergies Allergy (Verified 08/15/17 19:55) Review of Systems Review of Systems: Please see history of present illness and past medical history as wall. Constitutional: Fever and chills reported. Head : No recent chronic headaches, recent head injury. Eyes: No recent eye pain, diplopia, redness, discharge, acute visual changes. Ears: No recent chronic ear pain, acute hearing loss, ear discharge. Oral cavity: No recent ulcerations, bleeding, oral cavity discomfort. Neck: No recent acute neck pain reported. Hematologic: No recent easy bruising or bleeding or hematologic malignancy reported. Lymphatic: No recent lymphatic malignancy, chronic lymphadenopathy reported yet Cardiovascular system review: See history of present illness. Respiratory system review: No recent chronic cough, hemoptysis, blood clots in the lungs reported. Mild Shortness of breath on exertion Gastrointestinal system review: Negative for any recent acute or chronic abdominal pain, hematemesis, melena, recent change in bowel habits. Genitourinary system review: No recent acute or chronic hematuria, flank pain, UTI etc. reported. Skin system review: Negative for any recent abnormal bruising, no rash, no pruritus reported. Neurologic: No prior history of strokes, mini strokes, seizure disorder. Psychologic: No history of major psychosis or major depression reported. Musculoskeletal: Minor aches and pains reported. No acute joint swelling reported. History of chronic back pain which at times can be significant. Endocrine: No recent polyuria, polydipsia, recent heat or cold intolerance. Physical Exam Vital Signs: Temp Pulse Resp BP Pulse Ox 98.2 F 82 19 100/67 97 08/16/17 11:50 08/16/17 11:50 08/16/17 11:50 08/16/17 11:50 08/16/17 11:50 Intake & Output 08/15/17 08/16/17 08/17/17 06:59 06:59 06:59 Intake Total 8386 Output Total 1250 1175 Balance 7136 -1175 Weight 112.1 kg Exam: GENERAL: well-nourished and in no acute distress. Alert and oriented x3 HEAD: Atraumatic, normocephalic. EYES: Pupils equal round and reactive to light, extraocular movements intact, sclera anicteric, conjunctiva are normal. ENT: TMs normal, nares patent, oropharynx clear without exudates. Moist mucous membranes. No oral ulcerations or bleeding gums noted NECK: supple without lymphadenopathy. Trachea is central. No cervical or axillary lymphadenopathy noted. Carotids are 2+, JVD WNL LUNGS: Respiration seems nonlabored, no significant accessory muscle action noted. Breath sounds clear to auscultation bilaterally and equal noted. No wheezes rales or rhonchi noted. No significant dullness noted on percussion. CHEST: Palpation of the chest wall shows no significant chest wall tenderness. No other significant abnormalities noted. HEART: [place] [employer], No PSH, 1/6 JUAQUIN aortic area, 1/6 ivy systolic murmur mitral area, no rubs, no gallops. ABDOMEN: Soft, no significant tenderness appreciated, normoactive bowel sounds. No guarding, no rebound. No rigidity noted . No masses appreciated. EXTREMITIES: Pedal pulses are 1-2+, no calf tenderness noted. No clubbing or cyanosis.trace to 1+ pedal edema noted NEUROLOGICAL: Focused neurological exam showed no significant neurologic deficit. Normal speech, no focal weakness appreciated. PSYCH: Normal mood, normal affect. Judgment and insight within normal limits. SKIN: No significant ecchymosis, rash, ulcerations or signs of pruritus noted. MUSCULOSKELETAL EXAM: No significant joint swelling noted. Results Laboratory Results: 08/16/17 03:47 08/16/17 03:47 08/16/17 08/16/17 08/16/17 03:47 03:47 08:46 WBC 12.0 H RBC 3.44 L Hgb 10.7 L D Hct 31.7 L MCV 92 MCH 31.2 MCHC 33.9 RDW 13.8 Plt Count 170 Seg Neutrophils % 80.1 H Lymphocytes % 9.4 L Monocytes % 10.1 Eosinophils % 0.3 Basophils % 0.1 Absolute Neutrophils 9.6 H Absolute Lymphocytes 1.1 Absolute Monocytes 1.2 Absolute Eosinophils 0.0 Absolute Basophils 0.0 Sodium 139.5 Potassium 3.9 Chloride 109 H Carbon Dioxide 18 L Anion Gap 13 BUN 40 H Creatinine 5.02 H Est GFR ( Amer) 14 L Est GFR (Non-Af Amer) 12 L Glucose 130 H Calcium 7.4 L Phosphorus 5.5 H 4.5 Magnesium 1.8 08/16/17 08/16/17 08/16/17 03:47 03:47 08:46 Creatine Kinase 69387 H 11130 H CK-MB (CK-2) 90.40 H Troponin I 0.451 08/16/17 08:50 Creatine Kinase CK-MB (CK-2) 92.20 H Troponin I 0.319 EKG Comments: Multiple EKGs reviewed showed sinus rhythm with minor nonspecific ST-T wave changes Impressions: Chest X-Ray 08/15/17 17:40 IMPRESSION: NO ACUTE RADIOGRAPHIC FINDING IN THE CHEST. Abdomen/Pelvis CT 08/16/17 00:00 IMPRESSION: NO DEFINITE ACUTE FINDINGS IDENTIFIED ON THIS NONCONTRAST CT OF THE ABDOMEN AND PELVIS. CHRONIC CHANGES ABOVE. Chest CT 08/16/17 00:00 IMPRESSION: DIFFUSE PATCHY MULTIFOCAL GROUND-GLASS AIRSPACE DISEASE WITH SOME TREE-IN-BUD OPACITIES. DIFFERENTIAL INCLUDES INFECTIOUS/ INFLAMMATORY PNEUMONITIS, ASYMMETRIC PULMONARY EDEMA, AND DEVELOPING ARDS. Assessment & Plan - Diagnosis (1) Septic shock Is this a current diagnosis for this admission?: Yes (2) Rhabdomyolysis Qualifiers: Rhabdomyolysis type: non-traumatic Qualified Code(s): M62.82 - Rhabdomyolysis Is this a current diagnosis for this admission?: Yes (3) ARF (acute renal failure) Qualifiers: Acute renal failure type: with acute tubular necrosis Qualified Code(s): N17.0 - Acute kidney failure with tubular necrosis Is this a current diagnosis for this admission?: Yes (4) Elevated troponin I level Is this a current diagnosis for this admission?: Yes (5) Pneumonia Qualifiers: Pneumonia type: due to unspecified organism Laterality: unspecified laterality Lung location: unspecified part of lung Qualified Code(s): J18.9 - Pneumonia, unspecified organism Is this a current diagnosis for this admission?: Yes (6) Status post gastric bypass for obesity Is this a current diagnosis for this admission?: Yes - Notes Notes: Septic shock: This is consistent with patient's clinical presentation with fever and chills. Patient also noted to have pneumonia on CT scan. Continue with broad-spectrum antibiotic. Currently patient maintaining blood pressure and oxygenation with vasopressors and oxygen supplementation. Rhabdomyolysis: Possibly related to high fever and chills. Patient has complication, acute renal failure could be related to it. Patient has been aggressively hydrated. A 2D echo has been ordered. Acute renal failure: Possibly related to rhabdomyolysis, hypotension and sepsis. Kidney functions likely to improve gradually. Recommend nephrology evaluation. Elevated troponin I: [place] to be predominantly type II. However will continue to observe. Patient may benefit from a nuclear stress test prior to discharge. Pneumonia: Continue with aggressive broad-spectrum antibiotic therapy. Status post gastric bypass surgery for obesity: Currently stable. Patient may like to follow-up with me for evaluation for nutritional deficiencies. Patient may also benefit from evaluation of sleep apnea if not already performed. Further plans after review of 2D echo which was ordered. Currently patient seems hemodynamically stable. - Time Time Spent with patient: CODE STATUS was discussed, patient remains full code. Surrogate decision-maker unchanged. Multiple medical problems were addressed. More than 50% of the time spent coordinating care, discussing management plans with involved caregivers. Management plans discussed with involved personnels. Medical decision making was of moderate to high complexity, patient's has multiple comorbidities. Time Spent: 30 to 50 Minutes Medications reviewed and adjusted accordingly: Yes
[2017-08-16] MEDS ORDERED: LEVOFLOXACIN 750 MG/D5W RTU 750 MG/150 ML RTUPB IV ONE (14:00)
--- NOTE | 2017-08-16 14:17 | XCELERA REPORT ---
[address] [address] Transthoracic Echocardiogram Report Name: CARMELA ANTHONY Age: 61 yrs Gender: Male : 1955 Patient Status: Inpatient Patient Location: ICU^605^A Study Date: 08/16/2017 12:09 PM Height: 68 in Weight: 247 lb BSA: 2.2 m2 Procedure: A complete two-dimensional transthoracic echocardiogram was performed (2D, M-mode, spectral and color flow Doppler). The study was technically difficult with many images being suboptimal in quality. Reason For Study: Hypotension and abnormal troponin shock Ordering Physician: MAXIMILIAN MICHAUD Performed By: Nikki Cohen Interpretation Summary Left ventricular systolic function is low normal. Doppler measurements suggest normal left ventricular diastolic function There is mild concentric left ventricular hypertrophy. The left ventricle is grossly normal size. Regional wall motion abnormalities cannot be excluded due to limited visualization. The right ventricle is mildly dilated. The right ventricular systolic function is normal. The left atrium is mildly dilated. The right atrium is mildly dilated. There is a trace to mild amount of mitral regurgitation There is no mitral valve stenosis. No aortic regurgitation is present. There is no aortic valve stenosis There is a trace to mild amount of tricuspid regurgitation Tricuspid regurgitation jet envelope not well defined to measure RV systolic pressure accurately. The aortic root is not well visualized. The inferior vena cava appeared normal and decreased > 50% with respiration (RAP 5-10 mmHg) There is no pericardial effusion. MMode/2D Measurements & Calculations RVDd: 2.6 cm LVIDd: 5.2 cmFS: 39.2 % Ao root diam: 3.7 cm IVSd: 1.0 cm LVIDs: 3.2 cmEDV(Teich): 131.5 ml LVPWd: 1.0 cmESV(Teich): 40.4 ml Ao root area: 10.5 cm2 EF(Teich): 69.3 % LA dimension: 4.0 cm LVOT diam: 2.2 cm LVOT area: 4.0 cm2 Doppler Measurements & Calculations MV E max dylan: MV P1/2t max dylan: Ao V2 max: LV V1 max P.3 cm/sec 92.3 cm/sec 181.9 cm/sec 5.8 mmHg MV A max dylan: MV P1/2t: 66.4 msec Ao max PG: LV V1 max: 87.9 cm/sec MVA(P1/2t): 3.3 cm2 13.2 mmHg 119.9 cm/sec MV E/A: 1.0 MV dec slope: TWIN(V,D): 2.6 cm2 407.4 cm/sec2 PA V2 max: TR max dylan: 112.0 cm/sec 257.9 cm/sec PA max PG: TR max P.6 mmHg 5.0 mmHg Left Ventricle The left ventricle is grossly normal size. There is mild concentric left ventricular hypertrophy. Left ventricular systolic function is low normal. Doppler measurements suggest normal left ventricular diastolic function. Regional wall motion abnormalities cannot be excluded due to limited visualization. Right Ventricle The right ventricle is mildly dilated. There is normal right ventricular wall thickness. The right ventricular systolic function is normal. Atria The right atrium is mildly dilated. The left atrium is mildly dilated. Interarterial septum not well visualized and not well dopplered. Cannot comment on ASD/PFO presence. Mitral Valve The mitral valve is grossly normal. There is no mitral valve stenosis. There is a trace to mild amount of mitral regurgitation. Aortic Valve The aortic valve is not well visualized secondary to technical limitations. There is no aortic valve stenosis. No aortic regurgitation is present. Tricuspid Valve The tricuspid valve is not well visualized secondary to technical limitations. There is no tricuspid stenosis. There is a trace to mild amount of tricuspid regurgitation. Tricuspid regurgitation jet envelope not well defined to measure RV systolic pressure accurately. Pulmonic Valve The pulmonic valve is not well visualized. Great Vessels The aortic root is not well visualized. The inferior vena cava appeared normal and decreased > 50% with respiration (RAP 5-10 mmHg). Effusions There is no pericardial effusion. : MAXIMILIAN MICHAUD > Maximilian Michaud
[2017-08-16 15:40] LABS: CREATINE KINASE MB 83.8 ng/mL (<4.55); TROPONIN I 0.306 ng/mL
[2017-08-16] MEDS: LINEZOLID 300 ML IV SCH (17:47)
[2017-08-16] MEDS ORDERED: MORPHINE SULFATE IR 15 MG TABLET PO PRN (17:47)
[2017-08-16] MEDS ORDERED: MORPHINE SULFATE IR 15 MG TABLET PO SCH (18:00)
[2017-08-16] MEDS: LIDOCAINE 5% (700 MG) TRANSDERMAL ADH..PATCH TP SCH (21:56)
[2017-08-16] MEDS: GABAPENTIN 300 MG CAPSULE PO SCH (21:56)
[2017-08-16] MEDS ORDERED: GABAPENTIN 400 MG CAPSULE PO SCH (22:00)
[2017-08-16] MEDS ORDERED: AMITRIPTYLINE HCL 10 MG TABLET PO SCH (22:00)
[2017-08-17] MEDS: IPRATROPIUM/ALBUTEROL 0.5-2.5 MG/3 ML AMPUL NEB SCH ×4 (02:25→21:12)
[2017-08-17] MEDS: HEPARIN SOD (PORCINE) 5,000 UNIT/ML 1 ML SYRINGE SUBCUT SCH ×3 (05:33→22:26)
[2017-08-17] MEDS: LINEZOLID 300 ML IV SCH ×2 (05:34→17:27)
[2017-08-17] MEDS: GABAPENTIN 300 MG CAPSULE PO SCH (05:34)
[2017-08-17] MEDS: METHYLPREDNISOLONE INJ 40 MG/1 ML SDV IV SCH ×3 (05:34→22:23)
[2017-08-17] MEDS: LANSOPRAZOLE 15 MG TAB.RAP.DR PO SCH (05:34)
[2017-08-17 06:36] LABS: HEMATOCRIT 32.4 % (37.9-51.0); MEAN CORPUSCULAR HGB CONC 34.1 g/dL (32.0-36.0); MEAN CORPUSCULAR VOLUME 91 fl (80-97); PLATELET COUNT 147 10^3/uL (150-450); RED BLOOD COUNT 3.56 10^6/uL (4.35-5.55); RED CELL DISTRIBUTION WIDTH 14.2 % (11.5-14.0); WHITE BLOOD COUNT 9.6 10^3/uL (4.0-10.5)
[2017-08-17 06:52] LABS: ABSOLUTE NEUTROPHILS# (MANUAL) 9.6 10^3/uL (1.7-8.2); ALANINE AMINOTRANSFERASE 119 U/L (21-72); ALKALINE PHOSPHATASE 71 U/L (38-126); ANION GAP 12 (5-19); ASPARTATE AMINO TRANSFERASE 291 U/L (17-59); BAND NEUTROPHILS % (MANUAL) 8 % (3-5); BASOPHILS % (MANUAL) 0 % (0-2); BILIRUBIN,DIRECT 0.2 mg/dL (0.0-0.4); BILIRUBIN,TOTAL 0.4 mg/dL (0.2-1.3); BLOOD UREA NITROGEN 24 mg/dL (7-20); CALCIUM 8.9 mg/dL (8.4-10.2); CARBON DIOXIDE 20 mmol/L (22-30); CHLORIDE 110 mmol/L (98-107); EOSINOPHILS % (MANUAL) 0 % (0-6); GLUCOSE 197 mg/dL (75-110); LYMPHOCYTES % (MANUAL) 0 % (13-45); MAGNESIUM 1.9 mg/dL (1.6-2.3); MONOCYTES % (MANUAL) 0 % (3-13); POTASSIUM 4.5 mmol/L (3.6-5.0); SEGMENTED NEUTROPHILS % (MAN) 92 % (42-78); SODIUM 141.5 mmol/L (137-145); TOTAL CELLS COUNTED 100; TOTAL PROTEIN 5.4 g/dL (6.3-8.2)
[2017-08-17 06:54] LABS: ANISOCYTOSIS SLIGHT; BURR CELLS SLIGHT; OVALOCYTES SLIGHT; PLATELET COMMENT ADEQUATE; POIKILOCYTOSIS SLIGHT; TOXIC GRANULATION SLIGHT; TOXIC VACUOLATION PRESENT
[2017-08-17 07:08] LABS: CREATINE KINASE 7142 U/L (55-170)
[2017-08-17] MEDS: DOCUSATE SODIUM 100 MG CAPSULE PO SCH ×2 (08:05→17:28)
[2017-08-17] MEDS: NORMAL SALINE 1000 ML 1,000 ML IV PRN (08:38)
[2017-08-17] MEDS: POLYETHYLENE GLYCOL 3350 POWDER 17 GM/1 PACKET PO SCH (08:39)
[2017-08-17] MEDS: MORPHINE SULFATE SR 30 MG TABLET PO SCH ×2 (10:08→22:23)
[2017-08-17] MEDS ORDERED: AMLODIPINE BESYLATE 5 MG TABLET PO ONE (12:15)
--- NOTE | 2017-08-17 12:22 | PDOC PROGRESS REPORT ---
Subjective Progress Note for:: 08/17/17 Subjective:: Patient relates that back pain is better and is around 5. Has not been able to sleep but is a chronic problem. He cannot take gabapentin since gets twitching. Also has not been able to move his bowels. Reason For Visit: SEVERE SEPSIS,PNEUMONIA,RHABDOMYOLYSIS Physical Exam Vital Signs: Temp Pulse Resp BP Pulse Ox 97.3 F 86 14 122/57 L 100 08/17/17 07:08 08/17/17 02:25 08/17/17 07:08 08/17/17 07:08 08/17/17 07:08 Intake & Output 08/16/17 08/17/17 08/18/17 06:59 06:59 06:59 Intake Total 8386 5754 Output Total 1250 7150 Balance 7136 -1396 Weight 112.1 kg 112.7 kg General appearance: PRESENT: no acute distress, cooperative, morbidly obese Head exam: PRESENT: atraumatic, normocephalic Eye exam: PRESENT: conjunctiva pink, EOMI, PERRLA Ear exam: PRESENT: normal external ear exam Mouth exam: PRESENT: moist Neck exam: PRESENT: full ROM. ABSENT: JVD, tenderness Respiratory exam: PRESENT: clear to auscultation bere. ABSENT: tachypnea, unlabored Cardiovascular exam: PRESENT: RRR. ABSENT: diastolic murmur, systolic murmur Vascular exam: PRESENT: normal capillary refill GI/Abdominal exam: PRESENT: normal bowel sounds, soft. ABSENT: guarding, tenderness Extremities exam: PRESENT: full ROM. ABSENT: joint swelling, pedal edema Neurological exam: PRESENT: alert, oriented to person, oriented to place, oriented to time Psychiatric exam: PRESENT: depressed Results Laboratory Results: 08/17/17 06:08 08/17/17 06:08 08/16/17 08/17/17 08/17/17 08:46 06:08 06:08 WBC 9.6 RBC 3.56 L Hgb 11.0 L Hct 32.4 L MCV 91 MCH 31.0 MCHC 34.1 RDW 14.2 H Plt Count 147 L Seg Neutrophils % Not Reportable Lymphocytes % Not Reportable Monocytes % Not Reportable Eosinophils % Not Reportable Basophils % Not Reportable Absolute Neutrophils Not Reportable Absolute Lymphocytes Not Reportable Absolute Monocytes Not Reportable Absolute Eosinophils Not Reportable Absolute Basophils Not Reportable Sodium 141.5 Potassium 4.5 Chloride 110 H Carbon Dioxide 20 L Anion Gap 12 BUN 24 H Creatinine 1.88 H Est GFR ( Amer) 45 L Est GFR (Non-Af Amer) 37 L Glucose 197 H Calcium 8.9 Phosphorus 4.5 Magnesium 1.9 Total Bilirubin 0.4 AST 291 H ALT 119 H Alkaline Phosphatase 71 Total Protein 5.4 L Albumin 3.0 L 08/16/17 08/16/17 08/16/17 03:47 03:47 08:46 Creatine Kinase 43846 H 90211 H CK-MB (CK-2) 90.40 H Troponin I 0.451 08/16/17 08/16/17 08/16/17 08:50 14:57 14:57 Creatine Kinase 26675 H CK-MB (CK-2) 92.20 H 83.80 H Troponin I 0.319 0.306 08/17/17 06:08 Creatine Kinase 7142 H CK-MB (CK-2) Troponin I Impressions: Chest X-Ray 08/15/17 17:40 IMPRESSION: NO ACUTE RADIOGRAPHIC FINDING IN THE CHEST. Abdomen/Pelvis CT 08/16/17 00:00 IMPRESSION: NO DEFINITE ACUTE FINDINGS IDENTIFIED ON THIS NONCONTRAST CT OF THE ABDOMEN AND PELVIS. CHRONIC CHANGES ABOVE. Chest CT 08/16/17 00:00 IMPRESSION: DIFFUSE PATCHY MULTIFOCAL GROUND-GLASS AIRSPACE DISEASE WITH SOME TREE-IN-BUD OPACITIES. DIFFERENTIAL INCLUDES INFECTIOUS/ INFLAMMATORY PNEUMONITIS, ASYMMETRIC PULMONARY EDEMA, AND DEVELOPING ARDS. Assessment & Plan - Diagnosis (1) ARF (acute renal failure) Qualifiers: Acute renal failure type: with acute tubular necrosis Qualified Code(s): N17.0 - Acute kidney failure with tubular necrosis Is this a current diagnosis for this admission?: Yes Plan: Continue volume repletion but to decrease rate since improving and continue trending renal function (2) Chronic back pain Qualifiers: Back pain location: low back pain Back pain laterality: unspecified Sciatica presence: unspecified whether sciatica present Qualified Code(s): M54.5 - Low back pain; G89.29 - Other chronic pain; G89.29 - Other chronic pain Is this a current diagnosis for this admission?: Yes Plan: At the present time stable will use judiciously opioid. To start MS Contin but to lower dose to 30 mgs po bid and continue Morphine IR as needed (3) Chronic prescription opiate use Is this a current diagnosis for this admission?: Yes Plan: Continue use of opioids judiciously (4) Elevated troponin I level Is this a current diagnosis for this admission?: Yes Plan: May relate to myocardial oxygen demand ischemia in the setting of septic shock (5) Pneumonia Qualifiers: Pneumonia type: due to unspecified organism Laterality: unspecified laterality Lung location: unspecified part of lung Qualified Code(s): J18.9 - Pneumonia, unspecified organism Is this a current diagnosis for this admission?: Yes Plan: CT scan of chest results noted and discussed with patient and on 08/16. Will continue levaquin, zyvox and steroids. (6) Rhabdomyolysis Qualifiers: Rhabdomyolysis type: non-traumatic Qualified Code(s): M62.82 - Rhabdomyolysis Is this a current diagnosis for this admission?: Yes Plan: Resolving. To decrease rate of intravenous fluids and trend CPK (7) Septic shock Is this a current diagnosis for this admission?: Yes Plan: Resolved and off levophed. To transfer to telemetry. (8) Transaminitis Plan: CT of abdomen noted and limited. Likely due to fatty liver disease (9) Malnutrition following gastrointestinal surgery Is this a current diagnosis for this admission?: Yes Plan: Dietitian consulted (10) HTN (hypertension) Qualifiers: Hypertension type: essential hypertension Qualified Code(s): I10 - Essential (primary) hypertension Is this a current diagnosis for this admission?: Yes Plan: To place on norvasc instead of lisinopril (11) Insomnia Qualifiers: Insomnia type: unspecified Qualified Code(s): G47.00 - Insomnia, unspecified Is this a current diagnosis for this admission?: Yes Plan: Suspect has ongoing depression (had it in the past but took himself off medications). To order trazodone and follow up response. - Time Time Spent with patient: 15-24 minutes Medications reviewed and adjusted accordingly: Yes Anticipated discharge: Home Within: within 72 hours
--- NOTE | 2017-08-17 21:31 | PDOC PROGRESS REPORT ---
Subjective Progress Note for:: 08/17/17 Subjective:: Better, Patient claims to be feeling better. He is denying any chest, neck discomfort. His dyspnea is better. Patient has no other specific complaints. Reason For Visit: SEVERE SEPSIS,PNEUMONIA,RHABDOMYOLYSIS Physical Exam Vital Signs: Temp Pulse Resp BP Pulse Ox 98.2 F 108 H 17 154/79 H 100 08/17/17 16:00 08/17/17 16:00 08/17/17 16:18 08/17/17 16:18 08/17/17 16:18 Intake & Output 08/16/17 08/17/17 08/18/17 06:59 06:59 06:59 Intake Total 8386 5754 3455 Output Total 1250 7150 800 Balance 7136 -1396 2655 Weight 112.1 kg 112.7 kg Exam: GEN: NAD, patient alert oriented x3. Appearance and grooming WNL HEENT : Eyes: FARHAN, Ears: No significant abnormalities, Nose: No significant abnormalities. normocephalic atraumatic. Flat midface (-), Receding chin (-) ORAL : Mallampati class III, highly arched palate (-) Tonsils: Not enlarged. NECK: no thyromegaly, no masses, trachea is central, JVD is not elevated, carotids are 2+ with bruit (-) RESP: lungs clear to auscultation bilaterally, no rales, wheezes or rhonchi., nonlabored, no use of accessory muscles of respiration CV: NL S1 and S2. 2/6 ejection systolic murmur noted in the aortic area and left sternal border. 1/6 pansystolic murmur noted at the apex. no S3, no S4 noted. No rub noted., gallops, rubs, clicks GI: abd NT to palpation, no masses, bowel sounds present, no guarding or rigidity noted. EXT: no clubbing, (-) cyanosis, edema (1+), perpheral pulses (+) MUSC/SKEL: no acute joint swelling noted. Muscle strength is generally intact. NEURO: no tremors. no significant focal neurological deficits are noted., sensation grossly intact, AO x 3 PSYCH: NL mood and affect. judgment and insight noted to be intact.. SKIN: (-) rash, (-)Signs of pruritus, (-) other significant abnormality Results Laboratory Results: 08/17/17 06:08 08/17/17 06:08 08/17/17 08/17/17 06:08 06:08 WBC 9.6 RBC 3.56 L Hgb 11.0 L Hct 32.4 L MCV 91 MCH 31.0 MCHC 34.1 RDW 14.2 H Plt Count 147 L Seg Neutrophils % Not Reportable Lymphocytes % Not Reportable Monocytes % Not Reportable Eosinophils % Not Reportable Basophils % Not Reportable Absolute Neutrophils Not Reportable Absolute Lymphocytes Not Reportable Absolute Monocytes Not Reportable Absolute Eosinophils Not Reportable Absolute Basophils Not Reportable Sodium 141.5 Potassium 4.5 Chloride 110 H Carbon Dioxide 20 L Anion Gap 12 BUN 24 H Creatinine 1.88 H Est GFR ( Amer) 45 L Est GFR (Non-Af Amer) 37 L Glucose 197 H Calcium 8.9 Magnesium 1.9 Total Bilirubin 0.4 AST 291 H ALT 119 H Alkaline Phosphatase 71 Total Protein 5.4 L Albumin 3.0 L 08/16/17 08/16/17 08/16/17 03:47 03:47 08:46 Creatine Kinase 97036 H 97020 H CK-MB (CK-2) 90.40 H Troponin I 0.451 08/16/17 08/16/17 08/16/17 08:50 14:57 14:57 Creatine Kinase 74914 H CK-MB (CK-2) 92.20 H 83.80 H Troponin I 0.319 0.306 08/17/17 06:08 Creatine Kinase 7142 H CK-MB (CK-2) Troponin I EKG Comments: NSR, No sig cardiac dysrhythmia noted. Impressions: Chest X-Ray 08/15/17 17:40 IMPRESSION: NO ACUTE RADIOGRAPHIC FINDING IN THE CHEST. Abdomen/Pelvis CT 08/16/17 00:00 IMPRESSION: NO DEFINITE ACUTE FINDINGS IDENTIFIED ON THIS NONCONTRAST CT OF THE ABDOMEN AND PELVIS. CHRONIC CHANGES ABOVE. Chest CT 08/16/17 00:00 IMPRESSION: DIFFUSE PATCHY MULTIFOCAL GROUND-GLASS AIRSPACE DISEASE WITH SOME TREE-IN-BUD OPACITIES. DIFFERENTIAL INCLUDES INFECTIOUS/ INFLAMMATORY PNEUMONITIS, ASYMMETRIC PULMONARY EDEMA, AND DEVELOPING ARDS. Assessment & Plan - Diagnosis (1) Septic shock Is this a current diagnosis for this admission?: Yes (2) Rhabdomyolysis Qualifiers: Rhabdomyolysis type: non-traumatic Qualified Code(s): M62.82 - Rhabdomyolysis Is this a current diagnosis for this admission?: Yes (3) ARF (acute renal failure) Qualifiers: Acute renal failure type: with acute tubular necrosis Qualified Code(s): N17.0 - Acute kidney failure with tubular necrosis Is this a current diagnosis for this admission?: Yes (4) Elevated troponin I level Is this a current diagnosis for this admission?: Yes (5) Pneumonia Qualifiers: Pneumonia type: due to unspecified organism Laterality: unspecified laterality Lung location: unspecified part of lung Qualified Code(s): J18.9 - Pneumonia, unspecified organism Is this a current diagnosis for this admission?: Yes (6) Status post gastric bypass for obesity Is this a current diagnosis for this admission?: Yes - Notes Notes: Repeat EKG in am for any evolving changes. Septic shock: This is consistent with patient's clinical presentation with fever and chills. Patient also noted to have pneumonia on CT scan. Continue with broad-spectrum antibiotic. Currently patient maintaining blood pressure and oxygenation and off vasopressors and on oxygen supplementation. Rhabdomyolysis: Possibly related to high fever and chills. Patient has complication, acute renal failure could be related to it. Patient has been aggressively hydrated. A 2D echo results reviewed. Acute renal failure: Possibly related to rhabdomyolysis, hypotension and sepsis. Kidney functions likely to improve gradually. Recommend nephrology evaluation. Elevated troponin I: [place] to be predominantly type II. However will continue to observe. Patient may benefit from a nuclear stress test prior to discharge. Pneumonia: Continue with aggressive broad-spectrum antibiotic therapy. Status post gastric bypass surgery for obesity: Currently stable. Patient may like to follow-up with me for evaluation for nutritional deficiencies. Patient may also benefit from evaluation of sleep apnea if not already performed. - Time Time with patient: Greater than 35 minutes - Patient had multiple medical problems. These were reviewed. 2-D echo results reviewed with the patient. Patient's surrogate decision-maker is patient spouse. Discussed patient's condition and prognosis with patient, patient's family, nurses and other attendants involved. Medications reviewed and adjusted accordingly: Yes
[2017-08-17] MEDS: TRAZODONE HCL 50 MG TABLET PO SCH (22:24)
[2017-08-17] MEDS: LIDOCAINE 5% (700 MG) TRANSDERMAL ADH..PATCH TP SCH (23:13)
[2017-08-18] MEDS: IPRATROPIUM/ALBUTEROL 0.5-2.5 MG/3 ML AMPUL NEB SCH ×4 (03:08→21:48)
[2017-08-18] MEDS: HEPARIN SOD (PORCINE) 5,000 UNIT/ML 1 ML SYRINGE SUBCUT SCH ×3 (05:19→21:46)
[2017-08-18] MEDS: METHYLPREDNISOLONE INJ 40 MG/1 ML SDV IV SCH ×3 (05:20→21:46)
[2017-08-18] MEDS: LANSOPRAZOLE 15 MG TAB.RAP.DR PO SCH (05:20)
[2017-08-18] MEDS: LINEZOLID 300 ML IV SCH (05:21)
[2017-08-18] MEDS: NORMAL SALINE 1000 ML 1,000 ML IV PRN ×2 (05:25→14:17)
[2017-08-18 07:07] LABS: HEMATOCRIT 33.7 % (37.9-51.0); HEMOGLOBIN 11.5 g/dL (13.5-17.0); MEAN CORPUSCULAR HGB CONC 34.1 g/dL (32.0-36.0); MEAN CORPUSCULAR VOLUME 91 fl (80-97); PLATELET COUNT 188 10^3/uL (150-450); RED CELL DISTRIBUTION WIDTH 14.3 % (11.5-14.0); WHITE BLOOD COUNT 12.9 10^3/uL (4.0-10.5)
[2017-08-18 07:22] LABS: ALANINE AMINOTRANSFERASE 108 U/L (21-72); ALBUMIN 3.1 g/dL (3.5-5.0); ALKALINE PHOSPHATASE 78 U/L (38-126); ANION GAP 14 (5-19); ASPARTATE AMINO TRANSFERASE 144 U/L (17-59); BILIRUBIN,DIRECT 0.3 mg/dL (0.0-0.4); BILIRUBIN,TOTAL 0.4 mg/dL (0.2-1.3); BLOOD UREA NITROGEN 19 mg/dL (7-20); CALCIUM 9.5 mg/dL (8.4-10.2); CARBON DIOXIDE 20 mmol/L (22-30); CHLORIDE 109 mmol/L (98-107); GLUCOSE 189 mg/dL (75-110); MAGNESIUM 1.7 mg/dL (1.6-2.3); POTASSIUM 4.3 mmol/L (3.6-5.0); SODIUM 142.7 mmol/L (137-145); TOTAL PROTEIN 5.9 g/dL (6.3-8.2)
[2017-08-18 07:41] LABS: ABSOLUTE LYMPHOCYTES# (MANUAL) 0.3 10^3/uL (0.5-4.7); ABSOLUTE MONOCYTES # (MANUAL) 0.5 10^3/uL (0.1-1.4); ABSOLUTE NEUTROPHILS# (MANUAL) 12.1 10^3/uL (1.7-8.2); BASOPHILS % (MANUAL) 0 % (0-2); EOSINOPHILS % (MANUAL) 0 % (0-6); LYMPHOCYTES % (MANUAL) 2 % (13-45); MONOCYTES % (MANUAL) 4 % (3-13); SEGMENTED NEUTROPHILS % (MAN) 94 % (42-78); TOTAL CELLS COUNTED 100
[2017-08-18 07:42] LABS: ANISOCYTOSIS SLIGHT; PLATELET COMMENT ADEQUATE; TOXIC GRANULATION SLIGHT
[2017-08-18 07:49] LABS: CREATINE KINASE 2168 U/L (55-170)
[2017-08-18] MEDS: DOCUSATE SODIUM 100 MG CAPSULE PO SCH ×2 (09:30→17:13)
[2017-08-18] MEDS: POLYETHYLENE GLYCOL 3350 POWDER 17 GM/1 PACKET PO SCH (09:30)
[2017-08-18] MEDS: MORPHINE SULFATE SR 30 MG TABLET PO SCH ×2 (09:30→21:47)
[2017-08-18] MEDS: AMLODIPINE BESYLATE 5 MG TABLET PO SCH (09:30)
--- NOTE | 2017-08-18 09:42 | EKG REPORT ---
SEVERITY:- ABNORMAL ECG - SINUS TACHYCARDIA BORDERLINE T ABNORMALITIES, ANTERIOR LEADS : Confirmed by: Maximilian Carpenter 18-Aug-2017 09:41:09
[2017-08-18] MEDS ORDERED: LEVOFLOXACIN 500 MG/D5W RTU 500 MG/100 ML RTUPB IV SCH (14:00)
--- NOTE | 2017-08-18 14:15 | PDOC PROGRESS REPORT ---
Subjective Progress Note for:: 08/18/17 Subjective:: Patient denies any complaints at this time. Getting a nebulizer treatment at the time of my exam. Reason For Visit: SEVERE SEPSIS,PNEUMONIA,RHABDOMYOLYSIS Physical Exam Vital Signs: Temp Pulse Resp BP Pulse Ox 97.6 F 97 19 165/78 H 99 08/18/17 11:15 08/18/17 11:15 08/18/17 11:15 08/18/17 11:15 08/18/17 11:15 Intake & Output 08/17/17 08/18/17 08/19/17 06:59 06:59 06:59 Intake Total 5754 5995 Output Total 7150 3150 Balance -1396 2845 Weight 112.7 kg 118.2 kg General appearance: PRESENT: no acute distress Eye exam: PRESENT: conjunctiva pink Mouth exam: PRESENT: moist, tongue midline Neck exam: ABSENT: JVD Respiratory exam: PRESENT: rhonchi - Coarse rhonchi bilaterally.. ABSENT: rales , wheezes Cardiovascular exam: PRESENT: RRR. ABSENT: diastolic murmur, rubs, systolic murmur GI/Abdominal exam: PRESENT: normal bowel sounds, soft. ABSENT: distended, guarding, mass, organolmegaly, rebound, tenderness Extremities exam: ABSENT: calf tenderness, clubbing, pedal edema Neurological exam: PRESENT: alert, awake, oriented to person, oriented to place , oriented to time, oriented to situation, CN II-XII grossly intact. ABSENT: motor sensory deficit Psychiatric exam: PRESENT: appropriate affect Skin exam: PRESENT: dry, intact, warm. ABSENT: cyanosis, rash Results Laboratory Results: 08/18/17 06:05 08/18/17 06:05 08/18/17 08/18/17 06:05 06:05 WBC 12.9 H RBC 3.70 L Hgb 11.5 L Hct 33.7 L MCV 91 MCH 31.0 MCHC 34.1 RDW 14.3 H Plt Count 188 Seg Neutrophils % Not Reportable Lymphocytes % Not Reportable Monocytes % Not Reportable Eosinophils % Not Reportable Basophils % Not Reportable Absolute Neutrophils Not Reportable Absolute Lymphocytes Not Reportable Absolute Monocytes Not Reportable Absolute Eosinophils Not Reportable Absolute Basophils Not Reportable Sodium 142.7 Potassium 4.3 Chloride 109 H Carbon Dioxide 20 L Anion Gap 14 BUN 19 Creatinine 1.25 Est GFR ( Amer) > 60 Est GFR (Non-Af Amer) 59 L Glucose 189 H Calcium 9.5 Magnesium 1.7 Total Bilirubin 0.4 AST 144 H ALT 108 H Alkaline Phosphatase 78 Total Protein 5.9 L Albumin 3.1 L 08/16/17 08/16/17 08/16/17 03:47 03:47 08:46 Creatine Kinase 77834 H 83730 H CK-MB (CK-2) 90.40 H Troponin I 0.451 08/16/17 08/16/17 08/16/17 08:50 14:57 14:57 Creatine Kinase 06149 H CK-MB (CK-2) 92.20 H 83.80 H Troponin I 0.319 0.306 08/17/17 08/18/17 06:08 06:05 Creatine Kinase 7142 H 2168 H CK-MB (CK-2) Troponin I Impressions: Chest X-Ray 08/15/17 17:40 IMPRESSION: NO ACUTE RADIOGRAPHIC FINDING IN THE CHEST. Abdomen/Pelvis CT 08/16/17 00:00 IMPRESSION: NO DEFINITE ACUTE FINDINGS IDENTIFIED ON THIS NONCONTRAST CT OF THE ABDOMEN AND PELVIS. CHRONIC CHANGES ABOVE. Chest CT 08/16/17 00:00 IMPRESSION: DIFFUSE PATCHY MULTIFOCAL GROUND-GLASS AIRSPACE DISEASE WITH SOME TREE-IN-BUD OPACITIES. DIFFERENTIAL INCLUDES INFECTIOUS/ INFLAMMATORY PNEUMONITIS, ASYMMETRIC PULMONARY EDEMA, AND DEVELOPING ARDS. Assessment & Plan - Diagnosis (1) Septic shock Is this a current diagnosis for this admission?: Yes Plan: Secondary to pneumonia. (2) ARF (acute renal failure) Qualifiers: Acute renal failure type: with acute tubular necrosis Qualified Code(s): N17.0 - Acute kidney failure with tubular necrosis Is this a current diagnosis for this admission?: Yes Plan: Resolved with IV fluids. (3) Chronic back pain Qualifiers: Back pain location: low back pain Back pain laterality: unspecified Sciatica presence: unspecified whether sciatica present Qualified Code(s): M54.5 - Low back pain; G89.29 - Other chronic pain; G89.29 - Other chronic pain Is this a current diagnosis for this admission?: Yes (4) Elevated troponin I level Is this a current diagnosis for this admission?: Yes Plan: Most likely secondary to the underlying sepsis and stress. (5) HTN (hypertension) Qualifiers: Hypertension type: essential hypertension Qualified Code(s): I10 - Essential (primary) hypertension Is this a current diagnosis for this admission?: Yes Plan: Patient's blood pressure was initially low. It has improved and has been restarted on his Norvasc. (6) Malnutrition following gastrointestinal surgery Is this a current diagnosis for this admission?: Yes (7) Pneumonia Qualifiers: Pneumonia type: due to unspecified organism Laterality: unspecified laterality Lung location: unspecified part of lung Qualified Code(s): J18.9 - Pneumonia, unspecified organism Is this a current diagnosis for this admission?: Yes Plan: Patient currently is growing both gram-negative's as well as gram-positive from sputum. (8) Rhabdomyolysis Qualifiers: Rhabdomyolysis type: non-traumatic Qualified Code(s): M62.82 - Rhabdomyolysis Is this a current diagnosis for this admission?: Yes Plan: The patient's creatinine kinase is improving. (9) Transaminitis Is this a current diagnosis for this admission?: Yes Plan: Is improving. - Time Time Spent with patient: 25-34 minutes - Inpatient Certification Medical Necessity: Need for IV Antibiotics
[2017-08-18] MEDS: LINEZOLID 600 MG TABLET PO SCH (17:13)
--- NOTE | 2017-08-18 21:34 | PDOC PROGRESS REPORT ---
Subjective Progress Note for:: 08/18/17 Subjective:: Patient seems to be doing better with gradual improvement. Pt is denying any chest arm or neck discomfort. Patient denying any PND, orthopnea. Patient denied any sustained palpitations, dizziness, syncope, near syncope. Patient denying any fever chills. Patient denying any other significant discomfort. Patient is maintaining sinus rhythm. Review of systems: Rest review of systems negative. Medications: Medications have been reviewed. Reason For Visit: SEVERE SEPSIS,PNEUMONIA,RHABDOMYOLYSIS Physical Exam Vital Signs: Temp Pulse Resp BP Pulse Ox 97.8 F 107 H 18 160/83 H 98 08/18/17 15:40 08/18/17 15:40 08/18/17 15:40 08/18/17 16:34 08/18/17 15:40 Intake & Output 08/17/17 08/18/17 08/19/17 06:59 06:59 06:59 Intake Total 5754 5995 2695 Output Total 7150 3150 1075 Balance -1396 2845 1620 Weight 112.7 kg 118.2 kg 118.2 kg Exam: GENERAL: well-nourished and in no acute distress. Alert and oriented x3 HEAD: Atraumatic, normocephalic. EYES: Pupils equal round and reactive to light, extraocular movements intact, sclera anicteric, conjunctiva are normal. ENT: TMs normal, nares patent, oropharynx clear without exudates. Moist mucous membranes. No oral ulcerations or bleeding gums noted NECK: supple without lymphadenopathy. Trachea is central. No cervical or axillary lymphadenopathy noted. Carotids are 2+, JVD WNL LUNGS: Respiration seems nonlabored, no significant accessory muscle action noted. Few bibasilar crackles noted. No wheezes rales or rhonchi noted. No significant dullness noted on percussion. CHEST: Palpation of the chest wall shows no significant chest wall tenderness. No other significant abnormalities noted. 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 ABDOMEN: Soft, no significant tenderness appreciated, normoactive bowel sounds. No guarding, no rebound. No rigidity noted . No masses appreciated. EXTREMITIES: Pedal pulses are 1-2+, no calf tenderness noted. No clubbing or cyanosis.trace to 1+ pedal edema noted NEUROLOGICAL: Focused neurological exam showed no significant neurologic deficit. Normal speech, no focal weakness appreciated. PSYCH: Normal mood, normal affect. Judgment and insight within normal limits. SKIN: No significant ecchymosis, rash, ulcerations or signs of pruritus noted. MUSCULOSKELETAL EXAM: No significant joint swelling noted. Results Laboratory Results: 08/18/17 06:05 08/18/17 06:05 08/18/17 08/18/17 06:05 06:05 WBC 12.9 H RBC 3.70 L Hgb 11.5 L Hct 33.7 L MCV 91 MCH 31.0 MCHC 34.1 RDW 14.3 H Plt Count 188 Seg Neutrophils % Not Reportable Lymphocytes % Not Reportable Monocytes % Not Reportable Eosinophils % Not Reportable Basophils % Not Reportable Absolute Neutrophils Not Reportable Absolute Lymphocytes Not Reportable Absolute Monocytes Not Reportable Absolute Eosinophils Not Reportable Absolute Basophils Not Reportable Sodium 142.7 Potassium 4.3 Chloride 109 H Carbon Dioxide 20 L Anion Gap 14 BUN 19 Creatinine 1.25 Est GFR ( Amer) > 60 Est GFR (Non-Af Amer) 59 L Glucose 189 H Calcium 9.5 Magnesium 1.7 Total Bilirubin 0.4 AST 144 H ALT 108 H Alkaline Phosphatase 78 Total Protein 5.9 L Albumin 3.1 L 08/16/17 08/16/17 08/16/17 03:47 03:47 08:46 Creatine Kinase 17305 H 91954 H CK-MB (CK-2) 90.40 H Troponin I 0.451 08/16/17 08/16/17 08/16/17 08:50 14:57 14:57 Creatine Kinase 83135 H CK-MB (CK-2) 92.20 H 83.80 H Troponin I 0.319 0.306 08/17/17 08/18/17 06:08 06:05 Creatine Kinase 7142 H 2168 H CK-MB (CK-2) Troponin I EKG Comments: Telemetry strip shows sinus rhythm. No sustained tachycardia or bradycardia arrhythmias noted. Twelve-lead EKG shows sinus rhythm but low voltage in chest leads. Impressions: Chest X-Ray 08/15/17 17:40 IMPRESSION: NO ACUTE RADIOGRAPHIC FINDING IN THE CHEST. Abdomen/Pelvis CT 08/16/17 00:00 IMPRESSION: NO DEFINITE ACUTE FINDINGS IDENTIFIED ON THIS NONCONTRAST CT OF THE ABDOMEN AND PELVIS. CHRONIC CHANGES ABOVE. Chest CT 08/16/17 00:00 IMPRESSION: DIFFUSE PATCHY MULTIFOCAL GROUND-GLASS AIRSPACE DISEASE WITH SOME TREE-IN-BUD OPACITIES. DIFFERENTIAL INCLUDES INFECTIOUS/ INFLAMMATORY PNEUMONITIS, ASYMMETRIC PULMONARY EDEMA, AND DEVELOPING ARDS. Assessment & Plan - Diagnosis (1) Septic shock Is this a current diagnosis for this admission?: Yes (2) Rhabdomyolysis Qualifiers: Rhabdomyolysis type: non-traumatic Qualified Code(s): M62.82 - Rhabdomyolysis Is this a current diagnosis for this admission?: Yes (3) ARF (acute renal failure) Qualifiers: Acute renal failure type: with acute tubular necrosis Qualified Code(s): N17.0 - Acute kidney failure with tubular necrosis Is this a current diagnosis for this admission?: Yes (4) Elevated troponin I level Is this a current diagnosis for this admission?: Yes (5) Pneumonia Qualifiers: Pneumonia type: due to unspecified organism Laterality: unspecified laterality Lung location: unspecified part of lung Qualified Code(s): J18.9 - Pneumonia, unspecified organism Is this a current diagnosis for this admission?: Yes (6) Status post gastric bypass for obesity Is this a current diagnosis for this admission?: Yes - Notes Notes: Septic shock: This is consistent with patient's clinical presentation with fever and chills. Patient also noted to have pneumonia on CT scan. Continue with broad-spectrum antibiotic. Patient improved quickly and was able to be moved to the floor. Rhabdomyolysis: Possibly related to high fever and chills, along with sepsis.. Patient has complication, acute renal failure could be related to it. Patient has been aggressively hydrated. Acute renal failure: Possibly related to rhabdomyolysis, hypotension and sepsis. Kidney functions likely to improve gradually. Recommend nephrology evaluation. Elevated troponin I: [place] to be predominantly type II. However will continue to observe. Patient may benefit from a nuclear stress test prior to discharge or soon after discharge. 2D echo reviewed shows relatively well-preserved LVEF. Pneumonia: Continue with aggressive broad-spectrum antibiotic therapy. Status post gastric bypass surgery for obesity: Currently stable. Patient may like to follow-up with me for evaluation for nutritional deficiencies. Patient may also benefit from evaluation of sleep apnea if not already performed. - Time Time with patient: Greater than 35 minutes - CODE STATUS was discussed, patient remains full code. Surrogate decision-maker unchanged. Multiple medical problems were addressed. More than 50% of the time spent coordinating care, discussing management plans with involved caregivers. Management plans discussed with involved personnels. Medical decision making was of moderate to high complexity, patient's has multiple comorbidities. Medications reviewed and adjusted accordingly: Yes
[2017-08-18] MEDS: TRAZODONE HCL 50 MG TABLET PO SCH (21:46)
[2017-08-18] MEDS: LIDOCAINE 5% (700 MG) TRANSDERMAL ADH..PATCH TP SCH (21:46)
[2017-08-19] MEDS: IPRATROPIUM/ALBUTEROL 0.5-2.5 MG/3 ML AMPUL NEB SCH ×2 (01:47→08:48)
[2017-08-19] MEDS: LINEZOLID 600 MG TABLET PO SCH (06:05)
[2017-08-19] MEDS: HEPARIN SOD (PORCINE) 5,000 UNIT/ML 1 ML SYRINGE SUBCUT SCH (06:05)
[2017-08-19] MEDS: METHYLPREDNISOLONE INJ 40 MG/1 ML SDV IV SCH (06:06)
[2017-08-19] MEDS: LANSOPRAZOLE 15 MG TAB.RAP.DR PO SCH (06:06)
[2017-08-19 07:22] LABS: ABSOLUTE LYMPHOCYTES (AUTO) 0.6 10^3/uL (0.5-4.7); ABSOLUTE MONOCYTES (AUTO) 0.7 10^3/uL (0.1-1.4); ABSOLUTE NEUT (AUTO) 8.6 10^3/uL (1.7-8.2); BASOPHILS % (AUTO) 0.1 % (0-2); EOSINOPHILS % (AUTO) 0.1 % (0-6); HEMATOCRIT 36.5 % (37.9-51.0); HEMOGLOBIN 12.3 g/dL (13.5-17.0); MEAN CORPUSCULAR HEMOGLOBIN 30.8 pg (27.0-33.4); MEAN CORPUSCULAR HGB CONC 33.7 g/dL (32.0-36.0); MEAN CORPUSCULAR VOLUME 91 fl (80-97); MONOCYTES % (AUTO) 7.3 % (3-13); PLATELET COUNT 192 10^3/uL (150-450); RED BLOOD COUNT 3.99 10^6/uL (4.35-5.55); RED CELL DISTRIBUTION WIDTH 14.3 % (11.5-14.0); SEGMENTED NEUTROPHILS % (AUTO) 86.5 % (42-78); TOTAL CELLS COUNTED % (AUTO) 100 %; WHITE BLOOD COUNT 9.9 10^3/uL (4.0-10.5)
[2017-08-19 07:39] LABS: ANION GAP 11 (5-19); BLOOD UREA NITROGEN 19 mg/dL (7-20); CALCIUM 9.7 mg/dL (8.4-10.2); CARBON DIOXIDE 26 mmol/L (22-30); CHLORIDE 109 mmol/L (98-107); CREATINE KINASE 823 U/L (55-170); GLUCOSE 167 mg/dL (75-110); POTASSIUM 4.4 mmol/L (3.6-5.0); SODIUM 145.5 mmol/L (137-145)
[2017-08-19] MEDS: POLYETHYLENE GLYCOL 3350 POWDER 17 GM/1 PACKET PO SCH (09:32)
[2017-08-19] MEDS: AMLODIPINE BESYLATE 5 MG TABLET PO SCH (09:33)
[2017-08-19] MEDS: DOCUSATE SODIUM 100 MG CAPSULE PO SCH (09:33)
[2017-08-19] MEDS: MORPHINE SULFATE SR 30 MG TABLET PO SCH (09:33)
--- NOTE | 2017-08-19 10:36 | EKG REPORT ---
SEVERITY:- ABNORMAL ECG - SINUS RHYTHM : Confirmed by: Maximilian Carpenter 19-Aug-2017 10:35:40
[2017-08-19 10:51] VITALS: BP 153/93
--- NOTE | 2017-08-19 14:03 | PDOC PROGRESS REPORT ---
Subjective Progress Note for:: 08/19/17 Subjective:: Patient seems to be doing better with significant improvement. Pt is denying any chest arm or neck discomfort. Patient denying any PND, orthopnea. Patient denied any sustained palpitations, dizziness, syncope, near syncope. Patient denying any fever chills. Patient denying any other significant discomfort. When I saw the patient, he told me that he is being discharged. Discussed that he will benefit from a stress test to be arranged as an outpatient. He also was recommended cardiology follow-up. Patient is maintaining sinus rhythm. Review of systems: Rest review of systems negative. Medications: Medications have been reviewed. Reason For Visit: SEVERE SEPSIS,PNEUMONIA,RHABDOMYOLYSIS Physical Exam Vital Signs: Temp Pulse Resp BP Pulse Ox 97.7 F 98 16 153/93 H 98 08/19/17 10:42 08/19/17 10:42 08/19/17 10:42 08/19/17 10:42 08/19/17 10:42 Intake & Output 08/18/17 08/19/17 08/20/17 06:59 06:59 06:59 Intake Total 6453 5176 Output Total 3700 1500 Balance 2753 3676 Weight 118.2 kg 120.5 kg Exam: GENERAL: well-nourished and in no acute distress. Alert and oriented x3 HEAD: Atraumatic, normocephalic. EYES: Pupils equal round and reactive to light, extraocular movements intact, sclera anicteric, conjunctiva are normal. ENT: TMs normal, nares patent, oropharynx clear without exudates. Moist mucous membranes. No oral ulcerations or bleeding gums noted NECK: supple without lymphadenopathy. Trachea is central. No cervical or axillary lymphadenopathy noted. Carotids are 2+, JVD WNL LUNGS: Respiration seems nonlabored, no significant accessory muscle action noted. Breath sounds clear to auscultation bilaterally and equal noted. No wheezes rales or rhonchi noted. No significant dullness noted on percussion. CHEST: Palpation of the chest wall shows no significant chest wall tenderness. No other significant abnormalities noted. HEART: [place] [employer]ED, No PSH, 1/6 JUAQUIN aortic area, 1/6 ivy systolic murmur mitral area, no rubs, no gallops. ABDOMEN: Soft, no significant tenderness appreciated, normoactive bowel sounds. No guarding, no rebound. No rigidity noted . No masses appreciated. EXTREMITIES: Pedal pulses are 1-2+, no calf tenderness noted. No clubbing or cyanosis.trace to 1+ pedal edema noted NEUROLOGICAL: Focused neurological exam showed no significant neurologic deficit. Normal speech, no focal weakness appreciated. PSYCH: Normal mood, normal affect. Judgment and insight within normal limits. SKIN: No significant ecchymosis, rash, ulcerations or signs of pruritus noted. MUSCULOSKELETAL EXAM: No significant joint swelling noted. Results Laboratory Results: 08/19/17 06:45 08/19/17 06:45 08/19/17 08/19/17 06:45 06:45 WBC 9.9 RBC 3.99 L Hgb 12.3 L Hct 36.5 L MCV 91 MCH 30.8 MCHC 33.7 RDW 14.3 H Plt Count 192 Seg Neutrophils % 86.5 H Lymphocytes % 6.0 L Monocytes % 7.3 Eosinophils % 0.1 Basophils % 0.1 Absolute Neutrophils 8.6 H Absolute Lymphocytes 0.6 Absolute Monocytes 0.7 Absolute Eosinophils 0.0 Absolute Basophils 0.0 Sodium 145.5 H Potassium 4.4 Chloride 109 H Carbon Dioxide 26 Anion Gap 11 BUN 19 Creatinine 1.18 Est GFR ( Amer) > 60 Est GFR (Non-Af Amer) > 60 Glucose 167 H Calcium 9.7 08/16/17 08/16/17 08/16/17 03:47 03:47 08:46 Creatine Kinase 98240 H 63530 H CK-MB (CK-2) 90.40 H Troponin I 0.451 08/16/17 08/16/17 08/16/17 08:50 14:57 14:57 Creatine Kinase 74555 H CK-MB (CK-2) 92.20 H 83.80 H Troponin I 0.319 0.306 08/17/17 08/18/17 08/19/17 06:08 06:05 06:45 Creatine Kinase 7142 H 2168 H 823 H CK-MB (CK-2) Troponin I EKG Comments: Telemetry strips shows sinus rhythm without any sustained tacky or bradycardia arrhythmias. Impressions: Chest X-Ray 08/15/17 17:40 IMPRESSION: NO ACUTE RADIOGRAPHIC FINDING IN THE CHEST. Abdomen/Pelvis CT 08/16/17 00:00 IMPRESSION: NO DEFINITE ACUTE FINDINGS IDENTIFIED ON THIS NONCONTRAST CT OF THE ABDOMEN AND PELVIS. CHRONIC CHANGES ABOVE. Chest CT 08/16/17 00:00 IMPRESSION: DIFFUSE PATCHY MULTIFOCAL GROUND-GLASS AIRSPACE DISEASE WITH SOME TREE-IN-BUD OPACITIES. DIFFERENTIAL INCLUDES INFECTIOUS/ INFLAMMATORY PNEUMONITIS, ASYMMETRIC PULMONARY EDEMA, AND DEVELOPING ARDS. Assessment & Plan - Diagnosis (1) Septic shock Is this a current diagnosis for this admission?: Yes (2) Rhabdomyolysis Qualifiers: Rhabdomyolysis type: non-traumatic Qualified Code(s): M62.82 - Rhabdomyolysis Is this a current diagnosis for this admission?: Yes (3) ARF (acute renal failure) Qualifiers: Acute renal failure type: with acute tubular necrosis Qualified Code(s): N17.0 - Acute kidney failure with tubular necrosis Is this a current diagnosis for this admission?: Yes (4) Elevated troponin I level Is this a current diagnosis for this admission?: Yes (5) Pneumonia Qualifiers: Pneumonia type: due to unspecified organism Laterality: unspecified laterality Lung location: unspecified part of lung Qualified Code(s): J18.9 - Pneumonia, unspecified organism Is this a current diagnosis for this admission?: Yes (6) Status post gastric bypass for obesity Is this a current diagnosis for this admission?: Yes - Notes Notes: Patient has shown marked rapid improvement and has been noted to be ambulatory without any symptoms. Patient is being discharged home. Sepsis has resolved. Renal functions have significantly improved. Discussed that he will need close follow-up to monitor renal functions, monitor cardiac enzymes and also will consider stress test and also a sleep evaluation. These were discussed. Patient given my card. He can follow-up with me if he wishes. - Time Time with patient: 15-25 minutes - CODE STATUS was discussed, patient remains full code. Surrogate decision-maker unchanged. Multiple medical problems were addressed. More than 50% of the time spent coordinating care, discussing management plans with involved caregivers. Management plans discussed with involved personnels. Medical decision making was of moderate to high complexity , patient's has multiple comorbidities.
--- NOTE | 2017-08-19 15:19 | PDOC DISCHARGE SUMMARY ---
General - Admit/Disc Date/PCP Admission Date/Primary Care Provider: 08/15/17 22:11 Discharge Date: 08/19/17 - Discharge Diagnosis (1) Septic shock Is this a current diagnosis for this admission?: Yes Summary: Secondary to pneumonia (2) Pneumonia Is this a current diagnosis for this admission?: Yes Summary: Patient grew out Enterobacter as well as staph aureus. Will be sent home with a course of Bactrim (3) ARF (acute renal failure) Is this a current diagnosis for this admission?: Yes Summary: Resolved (4) Chronic back pain Is this a current diagnosis for this admission?: Yes (5) Elevated troponin I level Is this a current diagnosis for this admission?: Yes Summary: Was evaluated by cardiology. Will need an outpatient stress test once he recovers from this illness (6) HTN (hypertension) Is this a current diagnosis for this admission?: Yes (7) Malnutrition following gastrointestinal surgery Is this a current diagnosis for this admission?: Yes (8) Rhabdomyolysis Is this a current diagnosis for this admission?: Yes Summary: Secondary to the sepsis (9) Transaminitis Is this a current diagnosis for this admission?: Yes Summary: Secondary to the acute infection - Additional Information Resuscitation Status: Full Code Discharge Diet: Cardiac Discharge Activity: Activity As Tolerated Prescriptions: Amlodipine Besylate [Norvasc 5 mg Tablet] 5 mg PO DAILY #30 tablet Prednisone 10 mg PO DAILY #39 tablet Sulfamethoxazole/Trimethoprim [Bactrim Ds Tablet] 1 each PO BID #20 tablet Home Medications: Amitriptyline HCl [Elavil 10 mg Tablet] 10 mg PO QHS 08/16/17 Lisinopril [Prinivil 40 mg Tablet] 40 mg PO DAILY 08/16/17 Morphine Sulfate [Morphine Ir 15 mg Tablet] 15 mg PO BID MDD SEE PATIENT COMMENTS!! 08/16/17 Morphine Sulfate/Naltrexone [Embeda ER 20-0.8 mg Capsule] 1 each PO Q12 Zolpidem Tartrate [Ambien 5 mg Tablet] 10 mg PO HSP PRN 08/16/17 Amlodipine Besylate [Norvasc 5 mg Tablet] 5 mg PO DAILY #30 tablet 08/19/17 Prednisone 10 mg PO DAILY #39 tablet 08/19/17 Sulfamethoxazole/Trimethoprim [Bactrim Ds Tablet] 1 each PO BID #20 tablet 08/19 History of Present Illness History of Present Illness: CARMELA ANTHONY is a 61 year old male who has a history of hypertension and diabetes prior to his gastric bypass who presented to the emergency room and was found unresponsive. The patient was alert and awake by the time he was seen in the emergency room. Patient several days prior had noticed that he had felt weak and was having difficulty walking. And thought he had problems with his back as the cause. He also did have a cough with yellow brown sputum. The patient was found to have acute renal failure along with pneumonia and septic shock and is admitted to the ICU. Hospital Course Hospital Course: 61-year-old gentleman admitted with pneumonia and septic shock as well as rhabdomyolysis. Patient was treated with broad-spectrum antibiotics and clinically improved. He also had the acute renal failure secondary to dehydration. This was treated with IV fluids and resolved. His rhabdomyolysis also was treated with IV fluids improved. The patient's cultures eventually grew out staph aureus as well as Enterobacter as the cause. These were all sensitive to Bactrim and he is being sent home to complete a course of antibiotics with Bactrim. The patient also did have an elevated troponin. His creatinine however was elevated. Is not clear whether this is related to the acute infection or whether there is any cardiac issues. He was evaluated by cardiology who recommended an outpatient stress test when she is recovered from this infection. His other medical problems all were stable during this hospitalization. Physical Exam Vital Signs: Temp Pulse Resp BP Pulse Ox 97.7 F 98 16 153/93 H 98 08/19/17 10:42 08/19/17 10:42 08/19/17 10:42 08/19/17 10:42 08/19/17 10:42 Intake & Output 08/18/17 08/19/17 08/20/17 06:59 06:59 06:59 Intake Total 6453 5176 Output Total 3700 1500 Balance 2753 3676 Weight 118.2 kg 120.5 kg General appearance: PRESENT: no acute distress Eye exam: PRESENT: conjunctiva pink. ABSENT: scleral icterus Mouth exam: PRESENT: moist, tongue midline Neck exam: ABSENT: JVD Respiratory exam: PRESENT: clear to auscultation bere. ABSENT: rales, rhonchi, wheezes Cardiovascular exam: PRESENT: RRR. ABSENT: diastolic murmur, rubs, systolic murmur GI/Abdominal exam: PRESENT: normal bowel sounds, soft. ABSENT: distended, guarding, mass, organolmegaly, rebound, tenderness Extremities exam: ABSENT: calf tenderness, clubbing, pedal edema Neurological exam: PRESENT: alert, awake, oriented to person, oriented to place , oriented to time, oriented to situation, CN II-XII grossly intact. ABSENT: motor sensory deficit Psychiatric exam: PRESENT: appropriate affect Skin exam: PRESENT: dry, intact, warm. ABSENT: cyanosis, rash Results Laboratory Results: 08/19/17 06:45 08/19/17 06:45 08/19/17 08/19/17 06:45 06:45 WBC 9.9 RBC 3.99 L Hgb 12.3 L Hct 36.5 L MCV 91 MCH 30.8 MCHC 33.7 RDW 14.3 H Plt Count 192 Seg Neutrophils % 86.5 H Lymphocytes % 6.0 L Monocytes % 7.3 Eosinophils % 0.1 Basophils % 0.1 Absolute Neutrophils 8.6 H Absolute Lymphocytes 0.6 Absolute Monocytes 0.7 Absolute Eosinophils 0.0 Absolute Basophils 0.0 Sodium 145.5 H Potassium 4.4 Chloride 109 H Carbon Dioxide 26 Anion Gap 11 BUN 19 Creatinine 1.18 Est GFR ( Amer) > 60 Est GFR (Non-Af Amer) > 60 Glucose 167 H Calcium 9.7 08/16/17 08/16/17 08/16/17 03:47 03:47 08:46 Creatine Kinase 83973 H 80128 H CK-MB (CK-2) 90.40 H Troponin I 0.451 08/16/17 08/16/17 08/16/17 08:50 14:57 14:57 Creatine Kinase 74017 H CK-MB (CK-2) 92.20 H 83.80 H Troponin I 0.319 0.306 08/17/17 08/18/17 08/19/17 06:08 06:05 06:45 Creatine Kinase 7142 H 2168 H 823 H CK-MB (CK-2) Troponin I Impressions: Chest X-Ray 08/15/17 17:40 IMPRESSION: NO ACUTE RADIOGRAPHIC FINDING IN THE CHEST. Abdomen/Pelvis CT 08/16/17 00:00 IMPRESSION: NO DEFINITE ACUTE FINDINGS IDENTIFIED ON THIS NONCONTRAST CT OF THE ABDOMEN AND PELVIS. CHRONIC CHANGES ABOVE. Chest CT 08/16/17 00:00 IMPRESSION: DIFFUSE PATCHY MULTIFOCAL GROUND-GLASS AIRSPACE DISEASE WITH SOME TREE-IN-BUD OPACITIES. DIFFERENTIAL INCLUDES INFECTIOUS/ INFLAMMATORY PNEUMONITIS, ASYMMETRIC PULMONARY EDEMA, AND DEVELOPING ARDS. Qualifiers [place] BEING DISCHARGED WITH ANY OF THE FOLLOWING DIAGNOSIS?: No Plan Discharge Plan: Patient is discharged home. Follow-up with primary care in 2 weeks. Follow-up with cardiology in the next 2 weeks also. Time Spent: Greater than 30 Minutes
== END 2017-08-19 11:20 | disposition home or self-care (01) | DRG 871 ==
LOC: ER 17:35 → EH 22:11 → ICU 08-16 02:45 → 4S 08-17 18:15
PROVIDERS: ADMIT Family Medicine; ATTEND Family Medicine
PROC: 3E0F73Z Introduction of Anti-inflammatory into Respiratory Tract, Via Natural or Artificial Opening (ICD-10-PCS; principal; 2017-08-16)
DX: A41.9 Sepsis, unspecified organism (principal); J15.6 Pneumonia due to other Gram-negative bacteria; J15.211 Pneumonia due to Methicillin susceptible Staphylococcus aureus; R65.21 Severe sepsis with septic shock; N17.0 Acute kidney failure with tubular necrosis; K91.2 Postsurgical malabsorption, not elsewhere classified; M62.82 Rhabdomyolysis; M54.5 Low back pain; R74.8 Abnormal levels of other serum enzymes; I10 Essential (primary) hypertension; R74.0 Nonspecific elevation of levels of transaminase and lactic acid dehydrogenase [LDH]; Z68.39 Body mass index [BMI] 39.0-39.9, adult; Z79.891 Long term (current) use of opiate analgesic; Z98.84 Bariatric surgery status; Z90.49 Acquired absence of other specified parts of digestive tract; E86.0 Dehydration; G89.29 Other chronic pain; E66.9 Obesity, unspecified; G47.00 Insomnia, unspecified; Z82.49 Family history of ischemic heart disease and other diseases of the circulatory system; E11.9 Type 2 diabetes mellitus without complications
CPT/HCPCS: 36415; 51702; 71010; 71250; 74176; 80048; 80053; 81001; 82550; 82553; 82803; 82962; 83036; 83605; 83735; 84100; 84484; 85025; 85610; 87040; 87070; 87077; 87086; 87186; 87205; 93005; 93010; 93306; 96361; 96365; 96366; 96368; 96375; 99291; 99292; G8978-GP; G8979-GP; J1644; J1956; J2020; J2310; J2405; J2543; J2920; J3370; J3475; J3490; J7030; J7060; J7620

== ENCOUNTER 2017-09-25 04:11 | Inpatient (IN) | payer MEDICARE ==
--- NOTE | 2017-09-25 06:01 | ER Document Report ---
ED Medical Screen (RME) - General Chief Complaint: Back Pain Stated Complaint: BACK PAIN Time Seen by Provider: 09/25/17 04:51 Mode of Arrival: Medic Information source: Relative, [facility] Records Notes: 61-year-old male presents to ED via EMS for possible overdose. He has chronic back pain with multiple surgeries on chronic pain management. He was found unresponsive on the floor by family called EMS and EMS was at the hospital he woke up in pain and they gave him 1 mg of Dilaudid and brought him to the emergency room. Very hypertensive in the emergency room when awake very twitchy. Patient not able to give any logical history and medications history of what medications he took yesterday. He does not remember what doses he takes at home. I have greeted and performed a rapid initial assessment of this patient. A comprehensive ED assessment and evaluation of the patient, analysis of test results and completion of medical decision making process will be conducted by an additional ED providers. TRAVEL OUTSIDE OF THE [place] IN LAST 30 DAYS: No - Related Data Allergies/Adverse Reactions: No Known Allergies Allergy (Verified 08/15/17 19:55) Past Medical History - Past Medical History Cardiac Medical History: Reports: Hx Hypertension Denies: Hx Coronary Artery Disease, Hx Heart Attack Pulmonary Medical History: Denies: Hx Asthma, Hx Bronchitis, Hx COPD, Hx Pneumonia Neurological Medical History: Denies: Hx Cerebrovascular Accident, Hx Seizures Endocrine Medical History: Reports: 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 Renal/ Medical History: Denies: Hx Peritoneal Dialysis Musculoskeltal Medical History: Denies Hx Arthritis Past Surgical History: Reports: Hx Cholecystectomy, Hx Gastric Bypass Surgery, Hx Orthopedic Surgery - Back Surgery x6 - Immunizations Hx Diphtheria, Pertussis, Tetanus Vaccination: No History of Influenza Vaccine for 05/2017 - 10/2017 Season: Yes Influenza Administration Date for 05/2017 - 10/2017 Season: 05/17/17 Physical Exam - Vital signs Vitals: Temp Pulse Resp BP Pulse Ox 98.2 F 104 H 24 H 89/51 L 86 L 09/25/17 04:20 09/25/17 04:20 09/25/17 04:20 09/25/17 04:20 09/25/17 04:20 Course - Vital Signs Vital signs: Temp Pulse Resp BP Pulse Ox 98.2 F 104 H 20 89/51 L 98 09/25/17 04:20 09/25/17 04:20 09/25/17 05:20 09/25/17 04:20 09/25/17 05:20
[2017-09-25] MEDS ORDERED: NORMAL SALINE 1000 ML 1,000 ML IV ONE ×2 (06:02→06:03)
[2017-09-25] MEDS ORDERED: NORMAL SALINE 1000 ML 1,000 ML IV PRN (06:02)
--- NOTE | 2017-09-25 06:04 | ER Document Report ---
ED General - General Chief Complaint: Back Pain Stated Complaint: BACK PAIN Time Seen by Provider: 09/25/17 04:51 Mode of Arrival: Medic Notes: 61-year-old male with a history of 6 back surgeries on chronic narcotic therapy presents with altered mental status. When I ask him he states "I do not know if I passed out" however he was sleeping and his woke him up and called 911. EMS report was that he was hypoxic and hypotensive. For some reason he was administered IV Dilaudid prior to arrival in the ED. Initially seen by nurse practitioner. I evaluated the patient approximately 6 in the morning. TRAVEL OUTSIDE OF THE [place] IN LAST 30 DAYS: No - Related Data Allergies/Adverse Reactions: No Known Allergies Allergy (Verified 08/15/17 19:55) Past Medical History - General Information source: Relative, [facility] Records - Social History Smoking Status: Current Every Day Smoker Smoking Education Provided: Yes - The patient ED visit today was directly related to their abuse of tobacco. Family History: CAD, Malignancy, Other - ALS-brother - Past Medical History Cardiac Medical History: Reports: Hx Hypertension Denies: Hx Coronary Artery Disease, Hx Heart Attack Pulmonary Medical History: Denies: Hx Asthma, Hx Bronchitis, Hx COPD, Hx Pneumonia Neurological Medical History: Denies: Hx Cerebrovascular Accident, Hx Seizures Endocrine Medical History: Reports: 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 Renal/ Medical History: Denies: Hx Peritoneal Dialysis Musculoskeltal Medical History: Denies Hx Arthritis Past Surgical History: Reports: Hx Cholecystectomy, Hx Gastric Bypass Surgery, Hx Orthopedic Surgery - Back Surgery x6 - Immunizations Hx Diphtheria, Pertussis, Tetanus Vaccination: No Hx Pneumococcal Vaccination: 08/17/11 Review of Systems - Review of Systems Notes: REVIEW OF SYSTEMS GEN: Denies fever, chills, weight loss ENT: Denies sore throat, nasal discharge, ear pain EYES: Denies blurry vision, eye pain, discharge CV: Denies chest pain, palpitations, edema RESP: Denies cough, shortness of breath, wheezing GI: Denies abdominal pain, nausea, vomiting, diarrhea MSK: Chronic back pain SKIN: Denies rash, skin lesions LYMPH: Denies swollen glands/lymph nodes NEURO: Denies headache, f list legs tingling legs chronic very dry, PSYCH: Denies depression, suicidal or homicidal ideation PHYSICAL EXAMINATION General: No acute distress, well-nourished Head: Atraumatic, normocephalic ENT: Mouth normal, oropharynx moist, no exudates or tonsillar enlargement Eyes: Conjunctiva normal, pupils equal, lids normal Neck: No JVD, supple, no guarding CVS: Normal rate, regular rhythm, no murmurs Resp: No resp distress, equal and normal breath sounds bilaterally GI: Nondistended, soft, no tenderness to palpation, no rebound or guarding Ext: No deformities, no edema, normal range of motion in upper and lower ext Back: No CVA or midline TTP Skin: No rash, warm Lymphatic: No lymphadeopathy noted Neuro: Unknown. Arouses to loud voice. Hyper arousable and twitchy when awake. Moves all extremities, face is symmetric. Physical Exam - Vital signs Vitals: Temp Pulse Resp BP Pulse Ox 98.2 F 104 H 24 H 89/51 L 86 L 09/25/17 04:20 09/25/17 04:20 09/25/17 04:20 09/25/17 04:20 09/25/17 04:20 Course - Re-evaluation Re-evalutation: 09/25/17 06:09 She presents with hypoxia and hypotension and altered mental status. He is on chronic pain medicine as is his . His is also a patient in the ED. He is arousable to loud voice. He looks extremely dry. Patient has been here before with the exact same presentation with hypoxia hypotension and ended up having pneumonia and rhabdomyolysis dehydration and acute renal insufficiency, all of which are on the differential today. We will hydrate, place second IV. Does not need Narcan at this point. Ordered cultures lactate and CK. He has no cough today so I doubt pneumonia. 09/25/17 06:39 Reassessed at 6:30 AM. Pressure is now in the mid 80s systolic mental status is unchanged. Labs are pending. Continue fluid therapy. 09/25/17 07:21 Blood pressure stable mental status stable, labs show acute kidney injury likely from rhabdo although the CK is pending at this time. We will continue fluids and begin the admission process. Do not think he will need dialysis but we do have nephrology back up at this time. Chest x-ray negative for infection. 09/25/17 07:48 White count elevated possibly hemoconcentration or stress, there is no other sign of infection. Spoke with Dr. Mancera hospitalist for admission. - Vital Signs Vital signs: Temp Pulse Resp BP Pulse Ox 98.2 F 104 H 16 81/71 L 100 09/25/17 04:20 09/25/17 04:20 09/25/17 06:05 09/25/17 06:00 09/25/17 06:04 - Laboratory Result Diagrams: 09/25/17 06:15 09/25/17 06:15 Laboratory results interpreted by me: 09/25/17 09/25/17 09/25/17 06:15 06:15 06:15 WBC 22.1 H RBC 3.60 L Hgb 11.2 L Hct 33.0 L RDW 14.5 H BUN 39 H Creatinine 3.93 H Est GFR ( Amer) 19 L Est GFR (Non-Af Amer) 16 L Creatine Kinase 84297 H CK-MB (CK-2) 24.10 H - Diagnostic Test Radiology reviewed: Image reviewed, Reports reviewed Critical Care Note - Critical Care Note Total time excluding time spent on procedures (mins): 35 Comments: The above patient is critically ill. Not including procedures, but including direct re-evaluations, speaking with patient and/or consultants, interpreting results, and documenting, I spent the total amount of minute listed listed above on critical care time Discharge - Discharge Clinical Impression: Acute renal failure (ARF) Qualifiers: Acute renal failure type: unspecified Qualified Code(s): N17.9 - Acute kidney failure, unspecified Opioid overdose Qualifiers: Encounter type: initial encounter Injury intent: accidental or unintentional Qualified Code(s): T40.2X1A - Poisoning by other opioids, accidental ( unintentional), initial encounter Condition: Fair Disposition: ADMITTED INPATIENT Admitting Provider: Hospitalist Unit Admitted: Medical Floor
--- NOTE | 2017-09-25 06:41 | RADIOLOGY REPORT (SQ) ---
EXAM DESCRIPTION: CHEST SINGLE VIEW CLINICAL HISTORY: AMS, hypoTN, h/o PNA COMPARISON: 08/15/2017 FINDINGS: Single frontal view of the chest. The cardiomediastinal silhouette has normal size and contour. No consolidation, pneumothorax, or pleural effusion. Postoperative change of the cervical spine. Upper abdominal soft tissues are unremarkable. IMPRESSION: 1. No acute pulmonary process identified.
[2017-09-25 06:58] LABS: HEMOGLOBIN 11.2 g/dL (13.5-17.0); MEAN CORPUSCULAR HEMOGLOBIN 31.2 pg (27.0-33.4); MEAN CORPUSCULAR VOLUME 92 fl (80-97); PLATELET COUNT 214 10^3/uL (150-450); RED CELL DISTRIBUTION WIDTH 14.5 % (11.5-14.0); WHITE BLOOD COUNT 22.1 10^3/uL (4.0-10.5)
[2017-09-25 07:09] LABS: ANION GAP 10 (5-19); BLOOD UREA NITROGEN 39 mg/dL (7-20); CALCIUM 8.6 mg/dL (8.4-10.2); CARBON DIOXIDE 23 mmol/L (22-30); CHLORIDE 106 mmol/L (98-107); GLUCOSE 88 mg/dL (75-110); POTASSIUM 4.6 mmol/L (3.6-5.0); SODIUM 139.3 mmol/L (137-145)
[2017-09-25 07:37] LABS: CREATINE KINASE 10830 U/L (55-170)
[2017-09-25 07:51] LABS: ABSOLUTE LYMPHOCYTES# (MANUAL) 0.7 10^3/uL (0.5-4.7); ABSOLUTE MONOCYTES # (MANUAL) 0.7 10^3/uL (0.1-1.4); ABSOLUTE NEUTROPHILS# (MANUAL) 20.6 10^3/uL (1.7-8.2); BAND NEUTROPHILS % (MANUAL) 5 % (3-5); BASOPHILS % (MANUAL) 0 % (0-2); EOSINOPHILS % (MANUAL) 1 % (0-6); LYMPHOCYTES % (MANUAL) 3 % (13-45); MONOCYTES % (MANUAL) 3 % (3-13); SEGMENTED NEUTROPHILS % (MAN) 88 % (42-78); TOTAL CELLS COUNTED 100
[2017-09-25 07:52] LABS: ANISOCYTOSIS SLIGHT; PLATELET COMMENT ADEQUATE; POLYCHROMASIA SLIGHT; TOXIC GRANULATION SLIGHT
[2017-09-25] MEDS ORDERED: ACETAMINOPHEN 325 MG TABLET PO PRN (08:39)
[2017-09-25] MEDS ORDERED: ONDANSETRON HCL INJ/PF 4 MG/2 ML SDV IV PRN (08:39)
[2017-09-25] MEDS ORDERED: HYDROMORPHONE HCL INJ/PF 2 MG/ML AMPULE IV PRN (08:54)
[2017-09-25 08:58] LABS: AMORPHOUS SEDIMENT,URINE TRACE /HPF; APPEARANCE,URINE SLIGHTLY-CLOUDY; BILIRUBIN,URINE NEGATIVE (NEGATIVE); COLOR,URINE YELLOW; GLUCOSE, URINE NEGATIVE (NEGATIVE); KETONES,URINE NEGATIVE (NEGATIVE); LEUKOCYTE ESTERASE,URINE NEGATIVE (NEGATIVE); NITRITE,URINE NEGATIVE (NEGATIVE); PROTEIN,URINE 30 mg/dL (NEGATIVE); URINE SPECIFIC GRAVITY 1.014; UROBILINOGEN,URINE NEGATIVE mg/dL (<2.0)
[2017-09-25 09:11] LABS: URINE AMPHETAMINES SCREEN NEGATIVE; URINE BARBITURATES SCREEN NEGATIVE; URINE BENZODIAZEPINES SCREEN NEGATIVE; URINE COCAINE SCREEN NEGATIVE; URINE MARIJUANA (THC) SCREEN NEGATIVE; URINE METHADONE SCREEN NEGATIVE; URINE PHENCYCLIDINE SCREEN NEGATIVE
[2017-09-25] MEDS: RINGERS SOLUTION,LACTATED 1,000 ML IV PRN ×2 (09:45→17:23)
--- NOTE | 2017-09-25 10:03 | PDOC H&P ---
History of Present Illness Admission Date/PCP: 09/25/17 08:25 Patient complains of: Patient not very responsive at home per History of Present Illness: CARMELA ANTHONY is a 61 year old male presents to the emergency department with complaint of cough. reports the patient has been following off of the couch and been very sleepy. also states the patient has been unconscious at times. also reports that patient has been jerking his extremities. reports that she is concerned the patient has been taking some of her pain medication. Patient states that 1 of the bottles are in the same medicine cabinet. states she will go home and count her pills to see if that is what is occurring. Past Medical History Cardiac Medical History: Reports: Hypertension Denies: Coronary Artery Disease, Myocardial Infarction Pulmonary Medical History: Denies: Asthma, Bronchitis, Chronic Obstructive Pulmonary Disease (COPD), Pneumonia Neurological Medical History: Denies: Seizures Endocrine Medical History: Reports: Diabetes Mellitus Type 2 - Prior to gastric bypass Musculoskeltal Medical History: Denies: Arthritis Hematology: Denies: Anemia Past Surgical History Past Surgical History: Reports: Cholecystectomy, Gastric Bypass Surgery, Orthopedic Surgery - Back Surgery x6 Social History Smoking Status: Current Every Day Smoker Frequency of Alcohol Use: None Hx Recreational Drug Use: No Drugs: None Hx Prescription Drug Abuse: No - Advance Directive Resuscitation Status: Full Code Family History Family History: CAD, Malignancy, Other - ALS-brother Parental Family History Reviewed: Yes Children Family History Reviewed: Yes Sibling(s) Family History Reviewed.: Yes Medication/Allergy Allergies/Adverse Reactions: No Known Allergies Allergy (Verified 08/15/17 19:55) Review of Systems Constitutional: PRESENT: fatigue, weakness Eyes: ABSENT: visual disturbances Ears: ABSENT: hearing changes Cardiovascular: ABSENT: chest pain, dyspnea on exertion, edema, orthropnea, palpitations Respiratory: PRESENT: cough. ABSENT: hemoptysis Gastrointestinal: ABSENT: abdominal pain, constipation, diarrhea, hematemesis, hematochezia, nausea, vomiting Genitourinary: ABSENT: dysuria, hematuria Musculoskeletal: ABSENT: joint swelling Integumentary: ABSENT: rash, wounds Neurological: PRESENT: frequent falls, lack of coordination, weakness. ABSENT: abnormal gait, abnormal speech, confusion, dizziness, syncope Psychiatric: ABSENT: anxiety, depression, homidical ideation, suicidal ideation Endocrine: ABSENT: cold intolerance, heat intolerance, polydipsia, polyuria Hematologic/Lymphatic: ABSENT: easy bleeding, easy bruising Physical Exam Vital Signs: Temp Pulse Resp BP Pulse Ox 98.2 F 104 H 20 114/59 L 64 L 09/25/17 04:20 09/25/17 04:20 09/25/17 08:23 09/25/17 08:23 09/25/17 08:23 General appearance: PRESENT: no acute distress, well-developed, well-nourished Head exam: PRESENT: atraumatic, normocephalic Eye exam: PRESENT: conjunctiva pink, EOMI. ABSENT: scleral icterus Ear exam: PRESENT: normal external ear exam Mouth exam: PRESENT: moist, tongue midline Neck exam: ABSENT: carotid bruit, JVD, lymphadenopathy, thyromegaly Respiratory exam: PRESENT: clear to auscultation bere. ABSENT: rales, rhonchi, wheezes Cardiovascular exam: PRESENT: RRR. ABSENT: diastolic murmur, rubs, systolic murmur Pulses: PRESENT: normal dorsalis pedis pul Vascular exam: PRESENT: normal capillary refill GI/Abdominal exam: PRESENT: normal bowel sounds, soft. ABSENT: distended, guarding, mass, organolmegaly, rebound, tenderness Rectal exam: PRESENT: deferred Extremities exam: PRESENT: full ROM. ABSENT: calf tenderness, clubbing, pedal edema Neurological exam: PRESENT: alert, awake, oriented to person, oriented to situation, CN II-XII grossly intact. ABSENT: motor sensory deficit Psychiatric exam: PRESENT: agitated. ABSENT: homicidal ideation, suicidal ideation Skin exam: PRESENT: dry, intact, warm. ABSENT: cyanosis, rash Results Laboratory Results: 09/25/17 08:45 Urine Color YELLOW Urine Appearance SLIGHTLY-CLOUDY Urine pH 5.0 Ur Specific [place] 1.014 Urine Protein 30 H Urine Glucose (UA) NEGATIVE Urine Ketones NEGATIVE Urine Blood LARGE H Urine Nitrite NEGATIVE Ur Leukocyte Esterase NEGATIVE Urine WBC (Auto) 3 Urine RBC (Auto) 1 Impressions: Chest X-Ray 09/25/17 06:10 IMPRESSION: 1. No acute pulmonary process identified. Assessment & Plan - Diagnosis (1) Dehydration Is this a current diagnosis for this admission?: Yes Plan: Patient given to normal saline boluses. We will continue maintenance fluids at 150 cc/h. (2) Hypotension Is this a current diagnosis for this admission?: Yes Plan: Secondary to dehydration: Patient given 2 L of normal saline bolus. Will continue maintenance fluid at 150 cc/h. (3) Fall Is this a current diagnosis for this admission?: Yes Plan: We will have PT OT evaluate patient. (4) Opiate dependence Is this a current diagnosis for this admission?: Yes Plan: We will have pharmacy verify patient's home medication. (5) Opiate withdrawal Is this a current diagnosis for this admission?: Yes Plan: is concerned that patient has been using her main pain medication and this is why patient is so confused. Will schedule patient for Dilaudid 3 mg every 4 hours as needed for pain. (6) Opiate abuse, episodic Is this a current diagnosis for this admission?: Yes Plan: His concerned that patient is abusing her pain medication. (7) Suspect aspiration pneumonia Is this a current diagnosis for this admission?: Yes Plan: Will place pt on Zosyn. Will check CT for aspiration. Pt is currently dehydrated and chest x-ray may not reveal pneumonia. (8) ARF (acute renal failure) Qualifiers: Acute renal failure type: unspecified Qualified Code(s): N17.9 - Acute kidney failure, unspecified Is this a current diagnosis for this admission?: Yes Plan: Secondary to dehydration: Patient will continue to receive IV fluid resuscitation. (9) Opioid overdose Qualifiers: Encounter type: initial encounter Injury intent: accidental or unintentional Qualified Code(s): T40.2X1A - Poisoning by other opioids, accidental (unintentional), initial encounter Is this a current diagnosis for this admission?: Yes Plan: We will continue to monitor patient closely. (10) Chronic back pain Qualifiers: Back pain location: low back pain Back pain laterality: unspecified Sciatica presence: unspecified whether sciatica present Qualified Code(s): M54.5 - Low back pain; G89.29 - Other chronic pain; G89.29 - Other chronic pain Is this a current diagnosis for this admission?: Yes Plan: In setting of 7 back surgeries: Patient does have pain medication written for. (11) Leukocytosis Is this a current diagnosis for this admission?: Yes Plan: In setting of dehydration and concern for aspiration pneumonia: We will check CBC in a.m. In the meantime patient is placed on antibiotics. (12) Rhabdomyolysis Is this a current diagnosis for this admission?: Yes Plan: Will continue IV fluids. - Time Time Spent: 30 to 50 Minutes
--- NOTE | 2017-09-25 10:08 | RADIOLOGY REPORT (SQ) ---
EXAM DESCRIPTION: CT CHEST WITHOUT COMPLETED DATE/TIME: 09/25/2017 9:45 am REASON FOR STUDY: Concern for aspiration pneumonia COMPARISON: 08/16/2017 TECHNIQUE: CT scan performed of the chest without intravenous contrast. Images reviewed with lung, soft tissue and bone windows. Reconstructed coronal and sagittal MPR images reviewed. All images st ored on PACS. All CT scanners at this facility use dose modulation, iterative reconstruction, and/or weight based d osing when appropriate to reduce radiation dose to as low as reasonably achievable (ALARA). [facility]: Dose Right [facility]: CareDose [facility]: Dose Right [facility]: Teradose 4D [facility]: Smart Samuels Sleep RADIATION DOSE: CT Rad equipment meets quality standard of care and radiation dose reduction techniq ues were employed. CTDIvol: 18.2 mGy. DLP: 722 mGy-cm. mGy. LIMITATIONS: No technical limitations. FINDINGS: LUNGS AND PLEURA: Patchy areas of primarily linear and ground-glass attenuation in the mid dle lobe and right lower lobe. No air bronchograms. No effusions. HILAR AND MEDIASTINAL STRUCTURES: No identified masses or abnormal nodes. No obvious aneurysm. HEART AND VASCULAR STRUCTURES: No aneurysm. No pericardial effusion. UPPER ABDOMEN: Gastric bypass. Old granulomatous disease in the liver. THYROID AND OTHER SOFT TISSUES: No masses. No adenopathy. BONES: No acute findings. Thoracolumbar fusion and cervical fusion. HARDWARE: None in the chest. OTHER: No other significant findings. IMPRESSION: Atelectasis. No definite pneumonia. TECHNICAL DOCUMENTATION: JOB ID: [id number] Quality ID # [id number]: Final reports with documentation of one or more dose reduction techniques (e.g., Au tomated exposure control, adjustment of the mA and/or kV according to patient size, use of iterative reconstruction technique) 2010 [employer]- All Rights Reserved
[2017-09-25 10:44] LABS: ARTERIAL BLOOD BASE EXCESS -5.8 mmol/L; ARTERIAL BLOOD H2CO3 1.18 mmol/L (1.05-1.35); ARTERIAL BLOOD HCO3 19.8 mmol/L (20-26); ARTERIAL BLOOD O2 SATURATION 95.4 % (94-98); ARTERIAL BLOOD PCO2 39.3 mmHg (35-45); ARTERIAL BLOOD PH 7.32 (7.35-7.45); ARTERIAL BLOOD PO2 82.4 mmHg (80-100)
[2017-09-25 10:45] LABS: ARTERIAL BLOOD FIO2 2L
[2017-09-25] MEDS: PIPERACILLIN SODIUM/TAZOBACTAM 2.25 GM in NORMAL SALINE 50 ML IV SCH ×2 (12:30→17:23)
[2017-09-25] MEDS ORDERED: NORMAL SALINE 1000 ML 2,000 ML IV ONE (14:15)
[2017-09-26] MEDS: PIPERACILLIN SODIUM/TAZOBACTAM 2.25 GM in NORMAL SALINE 50 ML IV SCH ×3 (00:27→12:00)
[2017-09-26] MEDS: RINGERS SOLUTION,LACTATED 1,000 ML IV PRN ×4 (00:29→23:37)
[2017-09-26] MEDS: LANSOPRAZOLE 30 MG TAB.RAP.DR PO SCH (06:46)
[2017-09-26 06:53] LABS: HEMOGLOBIN 10.2 g/dL (13.5-17.0); MEAN CORPUSCULAR HEMOGLOBIN 31.8 pg (27.0-33.4); MEAN CORPUSCULAR HGB CONC 34.1 g/dL (32.0-36.0); MEAN CORPUSCULAR VOLUME 93 fl (80-97); PLATELET COUNT 160 10^3/uL (150-450); RED BLOOD COUNT 3.22 10^6/uL (4.35-5.55); RED CELL DISTRIBUTION WIDTH 14.7 % (11.5-14.0); WHITE BLOOD COUNT 13.9 10^3/uL (4.0-10.5)
[2017-09-26 07:13] LABS: ALANINE AMINOTRANSFERASE 84 U/L (21-72); ALKALINE PHOSPHATASE 76 U/L (38-126); ANION GAP 10 (5-19); ASPARTATE AMINO TRANSFERASE 338 U/L (17-59); BILIRUBIN,DIRECT 0.2 mg/dL (0.0-0.4); BILIRUBIN,TOTAL 0.6 mg/dL (0.2-1.3); BLOOD UREA NITROGEN 36 mg/dL (7-20); CALCIUM 8.3 mg/dL (8.4-10.2); CARBON DIOXIDE 21 mmol/L (22-30); CHLORIDE 108 mmol/L (98-107); GLUCOSE 102 mg/dL (75-110); POTASSIUM 4.9 mmol/L (3.6-5.0); SODIUM 139.3 mmol/L (137-145); TOTAL PROTEIN 4.9 g/dL (6.3-8.2)
[2017-09-26 07:37] LABS: CREATINE KINASE 13540 U/L (55-170)
[2017-09-26 07:52] LABS: ABSOLUTE LYMPHOCYTES# (MANUAL) 0.4 10^3/uL (0.5-4.7); ABSOLUTE MONOCYTES # (MANUAL) 1.7 10^3/uL (0.1-1.4); ABSOLUTE NEUTROPHILS# (MANUAL) 11.8 10^3/uL (1.7-8.2); BAND NEUTROPHILS % (MANUAL) 8 % (3-5); BASOPHILS % (MANUAL) 0 % (0-2); EOSINOPHILS % (MANUAL) 0 % (0-6); LYMPHOCYTES % (MANUAL) 3 % (13-45); MONOCYTES % (MANUAL) 12 % (3-13); SEGMENTED NEUTROPHILS % (MAN) 77 % (42-78); TOTAL CELLS COUNTED 100
[2017-09-26 07:53] LABS: PLATELET COMMENT ADEQUATE; RBC MORPHOLOGY COMMENT NORMO-CYTIC/CHROMIC
--- NOTE | 2017-09-26 13:16 | RADIOLOGY REPORT (SQ) ---
EXAM DESCRIPTION: U/S RETROPERITON LTD COMPLETED DATE/TIME: 09/26/2017 12:29 pm REASON FOR STUDY: Acute Renal injury COMPARISON: None. TECHNIQUE: Dynamic and static grayscale images acquired of the kidneys and bladder and recorded on P ACS. Additional selected color Doppler and spectral images recorded. LIMITATIONS: None. FINDINGS: RIGHT KIDNEY: Normal size. Normal echogenicity. Cortical cysts measuring up to 2 cm. No solid or suspicious masses. No hydronephrosis. No calcifications. LEFT KIDNEY: Normal size. Normal echogenicity. No solid or suspicious masses. No hydronephrosi s. No calcifications. BLADDER: No masses. OTHER FINDINGS: No other significant finding. IMPRESSION: CORTICAL CYSTS IN THE RIGHT KIDNEY. OTHERWISE UNREMARKABLE RENAL AND BLADDER ULTRASOUND . NO HYDRONEPHROSIS. TECHNICAL DOCUMENTATION: JOB ID: [id number] [employer]- All Rights Reserved
[2017-09-26] MEDS ORDERED: RINGERS SOLUTION,LACTATED 1,000 ML IV ONE (16:30)
[2017-09-26] MEDS: PIPERACILLIN SODIUM/TAZOBACTAM 3.375 GM in NORMAL SALINE 100 ML IV SCH ×2 (17:46→23:36)
[2017-09-26] MEDS: HYDROMORPHONE HCL INJ/PF 2 MG/ML AMPULE IV PRN (18:01)
--- NOTE | 2017-09-26 18:03 | PDOC PROGRESS REPORT ---
Subjective Progress Note for:: 09/26/17 Subjective:: Seen earlier this morning with who stated that he was feeling much better. Patient states that he always has pain but his pain is controlled. Received call from nurse later on during the day states that patient's was present in room and after left patient was noted to have a blood pressure of 80/ 46mmHg. Reason For Visit: OPIOID WITHDRAWAL,OPIOID DEPENDENCY,OPIOID MISUSE, Physical Exam Vital Signs: Temp Pulse Resp BP Pulse Ox 98.8 F 83 16 120/52 L 96 09/26/17 16:00 09/26/17 16:00 09/26/17 16:00 09/26/17 16:00 09/26/17 16:00 Intake & Output 09/25/17 09/26/17 09/27/17 06:59 06:59 06:59 Intake Total 950 2152 Output Total 700 Balance 250 2152 Weight 102.6 kg General appearance: PRESENT: no acute distress, well-developed, well-nourished Head exam: PRESENT: atraumatic, normocephalic Eye exam: PRESENT: conjunctiva pink, EOMI. ABSENT: scleral icterus Ear exam: PRESENT: normal external ear exam Mouth exam: PRESENT: moist, tongue midline Neck exam: ABSENT: carotid bruit, JVD, lymphadenopathy, thyromegaly Respiratory exam: PRESENT: decreased breath sounds. ABSENT: rales, rhonchi, wheezes Cardiovascular exam: PRESENT: RRR. ABSENT: diastolic murmur, rubs, systolic murmur Pulses: PRESENT: normal dorsalis pedis pul Vascular exam: PRESENT: normal capillary refill GI/Abdominal exam: PRESENT: normal bowel sounds, soft. ABSENT: distended, guarding, mass, organolmegaly, rebound, tenderness Rectal exam: PRESENT: deferred Extremities exam: PRESENT: full ROM. ABSENT: calf tenderness, clubbing, pedal edema Musculoskeletal exam: PRESENT: full ROM Neurological exam: PRESENT: alert, oriented to person, oriented to place, oriented to time Psychiatric exam: PRESENT: appropriate affect, normal mood. ABSENT: homicidal ideation, suicidal ideation Skin exam: PRESENT: dry, intact, warm. ABSENT: cyanosis, rash Results Laboratory Results: 09/26/17 05:28 09/26/17 05:28 09/26/17 09/26/17 05:28 05:28 WBC 13.9 H RBC 3.22 L Hgb 10.2 L Hct 30.0 L MCV 93 MCH 31.8 MCHC 34.1 RDW 14.7 H Plt Count 160 Seg Neutrophils % Not Reportable Lymphocytes % Not Reportable Monocytes % Not Reportable Eosinophils % Not Reportable Basophils % Not Reportable Absolute Neutrophils Not Reportable Absolute Lymphocytes Not Reportable Absolute Monocytes Not Reportable Absolute Eosinophils Not Reportable Absolute Basophils Not Reportable Sodium 139.3 Potassium 4.9 Chloride 108 H Carbon Dioxide 21 L Anion Gap 10 BUN 36 H Creatinine 2.40 H Est GFR ( Amer) 34 L Est GFR (Non-Af Amer) 28 L Glucose 102 Calcium 8.3 L Total Bilirubin 0.6 AST 338 H ALT 84 H Alkaline Phosphatase 76 Total Protein 4.9 L Albumin 3.0 L 09/26/17 09/26/17 05:28 09:40 Creatine Kinase 76614 H Troponin I 0.014 Impressions: Chest CT 09/25/17 00:00 IMPRESSION: Atelectasis. No definite pneumonia. Chest X-Ray 09/25/17 06:10 IMPRESSION: 1. No acute pulmonary process identified. Renal Ultrasound 09/26/17 00:00 IMPRESSION: CORTICAL CYSTS IN THE RIGHT KIDNEY. OTHERWISE UNREMARKABLE RENAL AND BLADDER ULTRASOUND. NO HYDRONEPHROSIS. Assessment & Plan - Diagnosis (1) Dehydration Is this a current diagnosis for this admission?: Yes Plan: Patient given one liter normal saline bolus. Will continue maintenance fluids at 250 cc/h. (2) Hypotension Is this a current diagnosis for this admission?: Yes Plan: Secondary to dehydration: 1 L of normal saline bolus. Will continue maintenance fluid at 250 cc/h. (3) Fall Is this a current diagnosis for this admission?: Yes Plan: PT OT evaluate patient. (4) Opiate dependence Is this a current diagnosis for this admission?: Yes Plan: We will have pharmacy verify patient's home medication. (5) Opiate withdrawal Is this a current diagnosis for this admission?: Yes Plan: Concerned that may be given additional pain medication to patient. Nurse states that she would watch patient more closely. (6) Opiate abuse, episodic Is this a current diagnosis for this admission?: Yes Plan: concerned that patient is abusing her pain medication. (7) Suspect aspiration pneumonia Is this a current diagnosis for this admission?: Yes Plan: Will continue Zosyn. (8) ARF (acute renal failure) Qualifiers: Acute renal failure type: unspecified Qualified Code(s): N17.9 - Acute kidney failure, unspecified Is this a current diagnosis for this admission?: Yes Plan: Secondary to dehydration: Patient will continue to receive IV fluid resuscitation. (9) Opioid overdose Qualifiers: Encounter type: initial encounter Injury intent: accidental or unintentional Qualified Code(s): T40.2X1A - Poisoning by other opioids, accidental (unintentional), initial encounter Is this a current diagnosis for this admission?: Yes Plan: We will continue to monitor patient closely. (10) Chronic back pain Qualifiers: Back pain location: low back pain Back pain laterality: unspecified Sciatica presence: unspecified whether sciatica present Qualified Code(s): M54.5 - Low back pain; G89.29 - Other chronic pain; G89.29 - Other chronic pain Is this a current diagnosis for this admission?: Yes Plan: In setting of 7 back surgeries: Patient does have pain medication written for. (11) Leukocytosis Is this a current diagnosis for this admission?: Yes Plan: In setting of dehydration and concern for aspiration pneumonia: Will continue current treatment. (12) Rhabdomyolysis Is this a current diagnosis for this admission?: Yes Plan: Will continue IV fluids. - Time Time Spent with patient: 25-34 minutes
[2017-09-27] MEDS: HYDROMORPHONE HCL INJ/PF 2 MG/ML AMPULE IV PRN ×3 (04:12→20:55)
[2017-09-27 06:40] LABS: HEMATOCRIT 26.9 % (37.9-51.0); HEMOGLOBIN 9.6 g/dL (13.5-17.0); MEAN CORPUSCULAR HGB CONC 35.6 g/dL (32.0-36.0); MEAN CORPUSCULAR VOLUME 90 fl (80-97); PLATELET COUNT 132 10^3/uL (150-450); RED BLOOD COUNT 2.99 10^6/uL (4.35-5.55); RED CELL DISTRIBUTION WIDTH 14.2 % (11.5-14.0); WHITE BLOOD COUNT 7.3 10^3/uL (4.0-10.5)
[2017-09-27 06:44] LABS: ALANINE AMINOTRANSFERASE 72 U/L (21-72); ALBUMIN 2.7 g/dL (3.5-5.0); ALKALINE PHOSPHATASE 71 U/L (38-126); ANION GAP 6 (5-19); ASPARTATE AMINO TRANSFERASE 208 U/L (17-59); BILIRUBIN,DIRECT 0.1 mg/dL (0.0-0.4); BILIRUBIN,TOTAL 0.7 mg/dL (0.2-1.3); BLOOD UREA NITROGEN 16 mg/dL (7-20); CALCIUM 8.4 mg/dL (8.4-10.2); CARBON DIOXIDE 27 mmol/L (22-30); CHLORIDE 108 mmol/L (98-107); GLUCOSE 122 mg/dL (75-110); POTASSIUM 4.6 mmol/L (3.6-5.0); SODIUM 141.1 mmol/L (137-145); TOTAL PROTEIN 4.6 g/dL (6.3-8.2)
[2017-09-27] MEDS: PIPERACILLIN SODIUM/TAZOBACTAM 3.375 GM in NORMAL SALINE 100 ML IV SCH ×4 (06:53→23:44)
[2017-09-27] MEDS: LANSOPRAZOLE 30 MG TAB.RAP.DR PO SCH (06:53)
[2017-09-27 07:01] LABS: ABSOLUTE LYMPHOCYTES# (MANUAL) 0.5 10^3/uL (0.5-4.7); ABSOLUTE MONOCYTES # (MANUAL) 0.4 10^3/uL (0.1-1.4); ABSOLUTE NEUTROPHILS# (MANUAL) 6.3 10^3/uL (1.7-8.2); BASOPHILS % (MANUAL) 0 % (0-2); EOSINOPHILS % (MANUAL) 1 % (0-6); LYMPHOCYTES % (MANUAL) 7 % (13-45); MONOCYTES % (MANUAL) 6 % (3-13); SEGMENTED NEUTROPHILS % (MAN) 86 % (42-78); TOTAL CELLS COUNTED 100
[2017-09-27 07:04] LABS: ANISOCYTOSIS SLIGHT; OVALOCYTES 1+; SCHISTOCYTES 1+; TOXIC GRANULATION 1+
[2017-09-27 07:05] LABS: PLATELET COMMENT ADEQUATE
[2017-09-27 07:10] LABS: CREATINE KINASE 6127 U/L (55-170)
[2017-09-27] MEDS: RINGERS SOLUTION,LACTATED 1,000 ML IV PRN ×2 (11:14→21:29)
--- NOTE | 2017-09-27 11:28 | PDOC PROGRESS REPORT ---
Subjective Progress Note for:: 09/27/17 Subjective:: Pt states that he would like to go home today. Nursing states that his blood pressure has been under control. Reason For Visit: OPIOID WITHDRAWAL,OPIOID DEPENDENCY,OPIOID MISUSE, Physical Exam Vital Signs: Temp Pulse Resp BP Pulse Ox 98.0 F 77 18 130/63 H 96 09/27/17 07:28 09/27/17 07:28 09/27/17 07:28 09/27/17 07:28 09/27/17 07:28 Intake & Output 09/26/17 09/27/17 09/28/17 06:59 06:59 06:59 Intake Total 950 7200 Output Total 700 3125 Balance 250 4075 Weight 102.6 kg 112.3 kg General appearance: PRESENT: no acute distress, well-developed, well-nourished Head exam: PRESENT: atraumatic, normocephalic Eye exam: PRESENT: conjunctiva pink, EOMI. ABSENT: scleral icterus Ear exam: PRESENT: bleeding Mouth exam: PRESENT: moist, tongue midline Neck exam: ABSENT: carotid bruit, JVD, lymphadenopathy, thyromegaly Respiratory exam: PRESENT: clear to auscultation bere. ABSENT: rales, rhonchi, wheezes Cardiovascular exam: PRESENT: RRR. ABSENT: diastolic murmur, rubs, systolic murmur Pulses: PRESENT: normal dorsalis pedis pul Vascular exam: PRESENT: normal capillary refill GI/Abdominal exam: PRESENT: normal bowel sounds, soft. ABSENT: distended, guarding, mass, organolmegaly, rebound, tenderness Rectal exam: PRESENT: deferred Extremities exam: PRESENT: full ROM. ABSENT: calf tenderness, clubbing, pedal edema Musculoskeletal exam: PRESENT: full ROM Neurological exam: PRESENT: alert, awake, oriented to person, oriented to place , oriented to time, oriented to situation, CN II-XII grossly intact. ABSENT: motor sensory deficit Psychiatric exam: PRESENT: appropriate affect, normal mood. ABSENT: homicidal ideation, suicidal ideation Skin exam: PRESENT: dry, intact, warm. ABSENT: cyanosis, rash Results Laboratory Results: 09/27/17 06:02 09/27/17 06:02 09/27/17 09/27/17 06:02 06:02 WBC 7.3 RBC 2.99 L Hgb 9.6 L Hct 26.9 L MCV 90 MCH 32.0 MCHC 35.6 RDW 14.2 H Plt Count 132 L Seg Neutrophils % Not Reportable Lymphocytes % Not Reportable Monocytes % Not Reportable Eosinophils % Not Reportable Basophils % Not Reportable Absolute Neutrophils Not Reportable Absolute Lymphocytes Not Reportable Absolute Monocytes Not Reportable Absolute Eosinophils Not Reportable Absolute Basophils Not Reportable Sodium 141.1 Potassium 4.6 Chloride 108 H Carbon Dioxide 27 Anion Gap 6 BUN 16 Creatinine 1.06 Est GFR ( Amer) > 60 Est GFR (Non-Af Amer) > 60 Glucose 122 H Calcium 8.4 Total Bilirubin 0.7 AST 208 H ALT 72 Alkaline Phosphatase 71 Total Protein 4.6 L Albumin 2.7 L 09/25/17 08:45 Catheterized Urine Urine Culture - Final NO GROWTH 2 DAYS 09/26/17 09/26/17 09/27/17 05:28 09:40 06:02 Creatine Kinase 00954 H 6127 H Troponin I 0.014 09/27/17 08:59 Creatine Kinase Troponin I 0.012 Impressions: Chest CT 09/25/17 00:00 IMPRESSION: Atelectasis. No definite pneumonia. Chest X-Ray 09/25/17 06:10 IMPRESSION: 1. No acute pulmonary process identified. Renal Ultrasound 09/26/17 00:00 IMPRESSION: CORTICAL CYSTS IN THE RIGHT KIDNEY. OTHERWISE UNREMARKABLE RENAL AND BLADDER ULTRASOUND. NO HYDRONEPHROSIS. Assessment & Plan - Diagnosis (1) Dehydration Is this a current diagnosis for this admission?: Yes Plan: Will continue maintenance fluids at 250 cc/h. (2) Hypotension Is this a current diagnosis for this admission?: Yes Plan: Secondary to dehydration and pain medication: Will continue maintenance fluid at 250 cc/h. (3) Rhabdomyolysis Is this a current diagnosis for this admission?: Yes Plan: Will continue IV fluids. CPK trending downward. Will continue current IVFs. (4) Fall Is this a current diagnosis for this admission?: Yes Plan: PT OT evaluate patient. (5) Opiate dependence Is this a current diagnosis for this admission?: Yes Plan: Pt placed on home medications. (6) Opiate withdrawal Is this a current diagnosis for this admission?: Yes Plan: Concerned that may be giving additional pain medication to patient. Nurse states that she would watch patient more closely. Pt's behavioral more appropriate today. (7) Opiate abuse, episodic Is this a current diagnosis for this admission?: Yes Plan: concerned that patient is abusing her pain medication. (8) Suspect aspiration pneumonia Is this a current diagnosis for this admission?: Yes Plan: Will continue Zosyn. Will check CXR in am. (9) ARF (acute renal failure) Qualifiers: Acute renal failure type: unspecified Qualified Code(s): N17.9 - Acute kidney failure, unspecified Is this a current diagnosis for this admission?: Yes Plan: Secondary to dehydration: Resolved (10) Opioid overdose Qualifiers: Encounter type: initial encounter Injury intent: accidental or unintentional Qualified Code(s): T40.2X1A - Poisoning by other opioids, accidental (unintentional), initial encounter Is this a current diagnosis for this admission?: Yes Plan: We will continue to monitor patient closely. (11) Chronic back pain Qualifiers: Back pain location: low back pain Back pain laterality: unspecified Sciatica presence: unspecified whether sciatica present Qualified Code(s): M54.5 - Low back pain; G89.29 - Other chronic pain; G89.29 - Other chronic pain Is this a current diagnosis for this admission?: Yes Plan: In setting of 7 back surgeries: Patient does have pain medication written for. (12) Leukocytosis Is this a current diagnosis for this admission?: Yes Plan: In setting of dehydration and concern for aspiration pneumonia: Resolved. (13) DVT prophylaxis Is this a current diagnosis for this admission?: Yes Plan: SCDs - Time Time Spent with patient: 15-24 minutes Anticipated discharge: Home with Homehealth - Home scheduled for tomorrow.
[2017-09-28] MEDS: RINGERS SOLUTION,LACTATED 1,000 ML IV PRN ×2 (02:24→06:27)
[2017-09-28] MEDS: HYDROMORPHONE HCL INJ/PF 2 MG/ML AMPULE IV PRN ×3 (03:57→13:59)
[2017-09-28] MEDS: PIPERACILLIN SODIUM/TAZOBACTAM 3.375 GM in NORMAL SALINE 100 ML IV SCH ×2 (06:28→11:42)
[2017-09-28] MEDS: LANSOPRAZOLE 30 MG TAB.RAP.DR PO SCH (06:28)
[2017-09-28 06:39] LABS: ABSOLUTE EOSINOPHILS # (AUTO) 0.1 10^3/uL (0.0-0.6); ABSOLUTE LYMPHOCYTES (AUTO) 0.5 10^3/uL (0.5-4.7); ABSOLUTE MONOCYTES (AUTO) 0.8 10^3/uL (0.1-1.4); ABSOLUTE NEUT (AUTO) 6.6 10^3/uL (1.7-8.2); BASOPHILS % (AUTO) 0.2 % (0-2); EOSINOPHILS % (AUTO) 1.1 % (0-6); HEMATOCRIT 29.2 % (37.9-51.0); HEMOGLOBIN 10.2 g/dL (13.5-17.0); LYMPHOCYTES % (AUTO) 5.9 % (13-45); MEAN CORPUSCULAR HEMOGLOBIN 31.7 pg (27.0-33.4); MEAN CORPUSCULAR HGB CONC 34.8 g/dL (32.0-36.0); MEAN CORPUSCULAR VOLUME 91 fl (80-97); MONOCYTES % (AUTO) 9.7 % (3-13); PLATELET COUNT 152 10^3/uL (150-450); RED BLOOD COUNT 3.21 10^6/uL (4.35-5.55); SEGMENTED NEUTROPHILS % (AUTO) 83.1 % (42-78); TOTAL CELLS COUNTED % (AUTO) 100 %; WHITE BLOOD COUNT 7.9 10^3/uL (4.0-10.5)
[2017-09-28 07:04] LABS: ALANINE AMINOTRANSFERASE 66 U/L (21-72); ALBUMIN 2.9 g/dL (3.5-5.0); ALKALINE PHOSPHATASE 66 U/L (38-126); ANION GAP 7 (5-19); ASPARTATE AMINO TRANSFERASE 136 U/L (17-59); BILIRUBIN,DIRECT 0.2 mg/dL (0.0-0.4); BILIRUBIN,TOTAL 0.6 mg/dL (0.2-1.3); BLOOD UREA NITROGEN 8 mg/dL (7-20); CALCIUM 8.5 mg/dL (8.4-10.2); CARBON DIOXIDE 27 mmol/L (22-30); CHLORIDE 107 mmol/L (98-107); GLUCOSE 96 mg/dL (75-110); MAGNESIUM 1.4 mg/dL (1.6-2.3); POTASSIUM 4.2 mmol/L (3.6-5.0); SODIUM 141.2 mmol/L (137-145); TOTAL PROTEIN 4.7 g/dL (6.3-8.2)
[2017-09-28 07:23] LABS: CREATINE KINASE 2369 U/L (55-170)
--- NOTE | 2017-09-28 09:39 | RADIOLOGY REPORT (SQ) ---
EXAM DESCRIPTION: CHEST SINGLE VIEW COMPLETED DATE/TIME: 09/28/2017 8:50 am REASON FOR STUDY: Concern for Pneumonia COMPARISON: 09/25/2017. CT chest 09/25/2017. NUMBER OF VIEWS: One view. TECHNIQUE: Single frontal radiographic view of the chest acquired. LIMITATIONS: None. FINDINGS: LUNGS AND PLEURA: No opacities, masses or pneumothorax. No pleural effusion. MEDIASTINUM AND HILAR STRUCTURES: No masses. Contour normal. HEART AND VASCULAR STRUCTURES: Heart normal in size. Normal vasculature. BONES: No acute findings. HARDWARE: None in the chest. OTHER: No other significant finding. IMPRESSION: NO SIGNIFICANT RADIOGRAPHIC FINDING IN THE CHEST. TECHNICAL DOCUMENTATION: JOB ID: [id number] [employer]- All Rights Reserved
--- NOTE | 2017-09-28 10:29 | PDOC DISCHARGE SUMMARY ---
General - Admit/Disc Date/PCP Admission Date/Primary Care Provider: 09/25/17 08:25 Discharge Date: 09/28/17 - Discharge Diagnosis (1) Dehydration Is this a current diagnosis for this admission?: Yes Summary: Patient was placed on IV fluids for volume expansion. Due to patient having rhabdo patient's fluids were set at 250 cc an hour. Patient's renal function has returned to baseline and patient CPK is 2000. (2) Hypotension Is this a current diagnosis for this admission?: Yes Summary: Patient was noted to be hypotensive at time of admission however after volume expansion blood pressure has returned to normal. Patient was informed that he will need to use his pain medicine as prescribed. Patient was also told not to use his 's pain medication. (3) Rhabdomyolysis Is this a current diagnosis for this admission?: Yes Summary: Patient's CPK peaked at 13,000. Patient was placed on aggressive IV fluids and CPK at time of discharge was 2000. (4) Fall Is this a current diagnosis for this admission?: Yes Summary: Patient has worked with PT OT during hospital stay. Patient will be discharged home with home health for PT OT and nursing for medication administration. (5) Opiate dependence Is this a current diagnosis for this admission?: Yes Summary: reports that patient uses her medicines at times. Told patient that he needs to use only his pain medication and not use his 's medication. (6) Opiate withdrawal Is this a current diagnosis for this admission?: Yes Summary: At time of admission patient was noted to experience opioid withdrawal. Once patient was restarted on home medication symptoms improved. (7) Opiate abuse, episodic Is this a current diagnosis for this admission?: Yes Summary: reports that at times patient does use her pain medication. Patient was told not to use his 's medication (8) Suspect aspiration pneumonia Is this a current diagnosis for this admission?: Yes Summary: Patient placed on Zosyn and will switch patient to Augmentin to complete a total 7 days of antibiotics. (9) ARF (acute renal failure) Is this a current diagnosis for this admission?: Yes Summary: Patient's creatinine at time of admission was 3.93. After patient received aggressive IV fluid volume expansion patient creatinine was 0.94 discharge. (10) Opioid overdose Is this a current diagnosis for this admission?: Yes Summary: Resolved. (11) Chronic back pain Is this a current diagnosis for this admission?: Yes Summary: Patient to use his own pain medication to help control chronic issue. (12) Leukocytosis Is this a current diagnosis for this admission?: Yes Summary: Resolved. (13) Hypomagnesemia Is this a current diagnosis for this admission?: Yes Summary: Pt was given magnesium replacement. - Additional Information Resuscitation Status: Full Code Discharge Diet: Cardiac Discharge Activity: Activity As Tolerated Prescriptions: Amoxicillin/Potassium Clav [Augmentin 875-125 Tablet] 1 each PO BID #8 tablet Magnesium Oxide/Magnesium [Magnesium 300 Mg Capsule] 300 mg PO BID #6 capsule Home Medications: Amitriptyline HCl [Elavil 10 mg Tablet] 10 mg PO QHS 09/25/17 Amlodipine Besylate [Norvasc 5 mg Tablet] 5 mg PO DAILY 09/25/17 Lisinopril [Prinivil 40 mg Tablet] 40 mg PO DAILY 09/25/17 Morphine Sulfate/Naltrexone [Embeda ER 20-0.8 mg Capsule] 1 cap PO Q12 09/25/17 Oxycodone HCl 15 mg PO DAILYP PRN 09/25/17 Oxycodone HCl [Oxycontin] 15 mg PO Q12 09/25/17 Amoxicillin/Potassium Clav [Augmentin 875-125 Tablet] 1 each PO BID #8 tablet Magnesium Oxide/Magnesium [Magnesium 300 Mg Capsule] 300 mg PO BID #6 capsule History of Present Illness Patient complains of: Not responsive at home. History of Present Illness: CARMELA ANTHONY is a 61 year old male presents to the emergency department with complaint of cough. reports the patient has been following off of the couch and been very sleepy. also states the patient has been unconscious at times. also reports that patient has been jerking his extremities. reports that she is concerned the patient has been taking some of her pain medication. Patient states that 1 of the bottles are in the same medicine cabinet. states she will go home and count her pills to see if that is what is occurring. Hospital Course Hospital Course: Pt was admitted to the hospital for opioid overdose and acute renal failiure. Pt was placed on IVFs and antibiotics for suspected aspiration pneumonia. Pt was monitored closely and each day demonstrated improvement. Pt states reported that pt sometimes uses her medication. [place] [address]. At time of discharge Cr. 0.94 and CPK 3000. Pt was noted to have low mangesium and was given magnesium replacement. Physical Exam Vital Signs: Temp Pulse Resp BP Pulse Ox 98.2 F 84 18 162/69 H 98 09/28/17 07:32 09/28/17 07:32 09/28/17 07:32 09/28/17 07:32 09/28/17 07:32 Intake & Output 09/27/17 09/28/17 09/29/17 06:59 06:59 06:59 Intake Total 7200 6669 Output Total 3125 2650 Balance 4075 4019 Weight 112.3 kg 114.4 kg General appearance: PRESENT: no acute distress, well-developed, well-nourished Head exam: PRESENT: atraumatic, normocephalic Eye exam: PRESENT: conjunctiva pink, EOMI. ABSENT: scleral icterus Ear exam: PRESENT: normal external ear exam Mouth exam: PRESENT: dry mucosa Neck exam: ABSENT: carotid bruit, JVD, lymphadenopathy, thyromegaly Respiratory exam: PRESENT: clear to auscultation bere. ABSENT: rales, rhonchi, wheezes Cardiovascular exam: PRESENT: RRR. ABSENT: diastolic murmur, rubs, systolic murmur Pulses: PRESENT: normal dorsalis pedis pul Vascular exam: PRESENT: normal capillary refill GI/Abdominal exam: PRESENT: normal bowel sounds, soft. ABSENT: distended, guarding, mass, organolmegaly, rebound, tenderness Rectal exam: PRESENT: deferred Extremities exam: PRESENT: full ROM. ABSENT: calf tenderness, clubbing, pedal edema Neurological exam: PRESENT: alert, awake, oriented to person, oriented to place , oriented to time, oriented to situation, CN II-XII grossly intact. ABSENT: motor sensory deficit Psychiatric exam: PRESENT: appropriate affect, normal mood. ABSENT: homicidal ideation, suicidal ideation Skin exam: PRESENT: dry, intact, warm. ABSENT: cyanosis, rash Results Laboratory Results: 09/28/17 05:04 09/28/17 05:04 09/28/17 09/28/17 05:04 05:04 WBC 7.9 RBC 3.21 L Hgb 10.2 L Hct 29.2 L MCV 91 MCH 31.7 MCHC 34.8 RDW 14.0 Plt Count 152 Seg Neutrophils % 83.1 H Lymphocytes % 5.9 L Monocytes % 9.7 Eosinophils % 1.1 Basophils % 0.2 Absolute Neutrophils 6.6 Absolute Lymphocytes 0.5 Absolute Monocytes 0.8 Absolute Eosinophils 0.1 Absolute Basophils 0.0 Sodium 141.2 Potassium 4.2 Chloride 107 Carbon Dioxide 27 Anion Gap 7 BUN 8 Creatinine 0.94 Est GFR ( Amer) > 60 Est GFR (Non-Af Amer) > 60 Glucose 96 Calcium 8.5 Magnesium 1.4 L Total Bilirubin 0.6 AST 136 H ALT 66 Alkaline Phosphatase 66 Total Protein 4.7 L Albumin 2.9 L 09/25/17 08:45 Catheterized Urine Urine Culture - Final NO GROWTH 2 DAYS 09/26/17 09/26/17 09/27/17 05:28 09:40 06:02 Creatine Kinase 76141 H 6127 H Troponin I 0.014 09/27/17 09/28/17 08:59 05:04 Creatine Kinase 2369 H Troponin I 0.012 Impressions: Chest CT 09/25/17 00:00 IMPRESSION: Atelectasis. No definite pneumonia. Renal Ultrasound 09/26/17 00:00 IMPRESSION: CORTICAL CYSTS IN THE RIGHT KIDNEY. OTHERWISE UNREMARKABLE RENAL AND BLADDER ULTRASOUND. NO HYDRONEPHROSIS. Chest X-Ray 09/28/17 06:00 IMPRESSION: NO SIGNIFICANT RADIOGRAPHIC FINDING IN THE CHEST. Plan Time Spent: Greater than 30 Minutes
[2017-09-28] MEDS: MAGNESIUM SULFATE/D5W 1 GM/100 ML RTUPB IV SCH ×3 (10:35→12:47)
[2017-09-28 13:01] VITALS: BP 162/76
== END 2017-09-28 14:20 | disposition home or self-care (01) | DRG 564 ==
LOC: ER 04:11 → EH 08:25 → 4W 23:58
PROVIDERS: ADMIT Emergency Medicine; ATTEND Emergency Medicine
PROC: 3E0234Z Introduction of Serum, Toxoid and Vaccine into Muscle, Percutaneous Approach (ICD-10-PCS; principal; 2017-09-27)
PROC: 3E0234Z Introduction of Serum, Toxoid and Vaccine into Muscle, Percutaneous Approach (ICD-10-PCS; 2017-09-28)
DX: T79.6XXA Traumatic ischemia of muscle, initial encounter (principal); J69.0 Pneumonitis due to inhalation of food and vomit; N17.9 Acute kidney failure, unspecified; F11.23 Opioid dependence with withdrawal; Q61.02 Congenital multiple renal cysts; W19.XXXA Unspecified fall, initial encounter; E86.0 Dehydration; I95.9 Hypotension, unspecified; T40.2X1A Poisoning by other opioids, accidental (unintentional), initial encounter; T40.2X5A Adverse effect of other opioids, initial encounter; G89.29 Other chronic pain; M54.5 Low back pain; E83.42 Hypomagnesemia; I10 Essential (primary) hypertension; F17.210 Nicotine dependence, cigarettes, uncomplicated; Z23 Encounter for immunization; Z79.899 Other long term (current) drug therapy; Z98.84 Bariatric surgery status; Z90.49 Acquired absence of other specified parts of digestive tract; Z82.49 Family history of ischemic heart disease and other diseases of the circulatory system; Z80.9 Family history of malignant neoplasm, unspecified
CPT/HCPCS: 36415; 71045; 71250; 76775; 80048; 80053; 80307; 81001; 82550; 82553; 82803; 83605; 83735; 84484; 85025; 87040; 87086; 96360; 99291; G8978-GP; G8979-GP; G8987-GO; G8988-GO; J1170; J2543; J3475; J7030; J7120

== ENCOUNTER 2018-01-11 08:02 | Emergency (ER) | payer MEDICARE ==
[2018-01-11] MEDS ORDERED: FENTANYL CITRATE INJ/PF 100 MCG/2 ML AMPUL IM ONE (08:19)
--- NOTE | 2018-01-11 08:22 | ER Document Report ---
ED General - General Chief Complaint: Low Back Pain Stated Complaint: BACK PAIN Time Seen by Provider: 01/11/18 08:14 TRAVEL OUTSIDE OF THE [place] IN LAST 30 DAYS: No - HPI Notes: 62-year-old man with lengthy history of back problems presents with exacerbation of his chronic condition. Patient states he has some sharp right- sided lower back pain with radiation to his right hip. Patient's not sure if a plate broke a one of his pins. Patient has lumbar surgery and thoracic surgery history. Pain is also around to his right flank denies any urinary symptoms fever chills or any other nausea or vomiting. 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 RESPIRATORY: -cough, -SOB GASTROINTESTINAL: -abdominal pain, -nausea, -vomiting, -diarrhea GENITOURINARY: -dysuria, -hematuria MUSCULOSKELETAL: Back pain SKIN: -rash or skin lesions. HEMATOLOGIC: -easy bruising or bleeding. LYMPHATIC: -swollen, enlarged glands. NEUROLOGICAL: -altered mental status or loss of consciousness, -headache, - neurologic symptoms PSYCHIATRIC: -anxiety, -depression. ALL OTHER SYSTEMS REVIEWED AND NEGATIVE. Physical Exam - Vital signs Vitals: Temp Pulse Resp BP Pulse Ox 98.7 F 69 16 169/92 H 100 01/11/18 08:07 01/11/18 08:07 01/11/18 08:07 01/11/18 08:07 01/11/18 08:07 - Notes Notes: PHYSICAL EXAMINATION: GENERAL: Well-appearing, well-nourished and in no acute distress. HEAD: Atraumatic, normocephalic. EYES: Pupils equal round and reactive to light, extraocular movements intact, sclera anicteric, conjunctiva are normal. ENT: nares patent, oropharynx clear without exudates. Moist mucous membranes. NECK: Normal range of motion, supple without lymphadenopathy LUNGS: Breath sounds clear to auscultation bilaterally and equal. No wheezes rales or rhonchi. HEART: Regular rate and rhythm without murmurs ABDOMEN: Soft, nontender, normoactive bowel sounds. No guarding, no rebound. No masses appreciated. EXTREMITIES: Normal range of motion, no pitting or edema. No cyanosis. NEUROLOGICAL: Cranial nerves grossly intact. Normal speech, normal gait. Normal sensory and motor exams. PSYCH: Normal mood, normal affect. SKIN: Warm, Dry, normal turgor, no rashes or lesions noted. Course - Re-evaluation Re-evalutation: 01/11/18 09:40 Well-appearing elderly male with lengthy history of back pain presents with exacerbation of his chronic condition. Extensive imaging studies reveal no acute process. All of his surgery girl devices in his back appear well placed. No intra-abdominal processes as well. Patient will be discharged home improved follow-up PCP with prescriptions for oral opioid therapy. - Vital Signs Vital signs: Temp Pulse Resp BP Pulse Ox 98.7 F 69 16 169/92 H 100 01/11/18 08:07 01/11/18 08:07 01/11/18 08:07 01/11/18 08:07 01/11/18 08:07 Discharge - Discharge Clinical Impression: Back pain Qualifiers: Back pain location: low back pain Chronicity: chronic Back pain laterality: right Sciatica presence: without sciatica Qualified Code(s): M54.5 - Low back pain; G89.29 - Other chronic pain; G89.29 - Other chronic pain Condition: Stable Disposition: HOME, SELF-CARE Instructions: Low Back Pain ([facility]) Additional Instructions: See your PCP Prescriptions: Oxycodone HCl [Oxycontin Ir 5 Mg Tablet] 1 - 2 mg PO Q4H PRN #15 tablet PRN Reason: For Pain
--- NOTE | 2018-01-11 09:28 | RADIOLOGY REPORT (SQ) ---
EXAM DESCRIPTION: T SPINE AP/LAT COMPLETED DATE/TIME: 01/11/2018 8:54 am REASON FOR STUDY: back pain COMPARISON: None. NUMBER OF VIEWS: Two views. TECHNIQUE: AP and lateral radiographic images acquired of the thoracic spine. LIMITATIONS: None. FINDINGS: MINERALIZATION: Normal. ALIGNMENT: Normal. No scoliosis. VERTEBRAE: No fracture or bone lesion. Maintained height, normal segmentation. DISCS: Multilevel disc space narrowing with osteophytes. HARDWARE: Posterior pedicle screws at T11 and T12. Lower cervical fusion. MEDIASTINUM AND SOFT TISSUES: Normal heart size and aortic contour. No soft tissue abnormality. VISUALIZED LUNG AVILA: Clear. OTHER: No other significant finding. IMPRESSION: SPONDYLOSIS WITHOUT BONE LESION OR FRACTURE. TECHNICAL DOCUMENTATION: JOB ID: [id number] [employer]- All Rights Reserved Reading location - IP/workstation name: [email or web address]
--- NOTE | 2018-01-11 09:29 | RADIOLOGY REPORT (SQ) ---
EXAM DESCRIPTION: L SPINE 2 VIEWS COMPLETED DATE/TIME: 01/11/2018 8:54 am REASON FOR STUDY: back pain COMPARISON: None. NUMBER OF VIEWS: Three views. TECHNIQUE: AP, lateral and sacral radiographic images acquired of the lumbar spine. LIMITATIONS: None. FINDINGS: There has been posterior fusion with spacer bars extending from T12-L4. Anterior screws a t L 2, L3 and S1. Posterior decompression L2-3 through L5-S1. Instrumentation appears intact. Study Abroad Coordinator chance degenerative changes. IMPRESSION: Chronic degenerative and postsurgical changes. TECHNICAL DOCUMENTATION: JOB ID: [id number] [employer]- All Rights Reserved Reading location - IP/workstation name: [email or web address]
--- NOTE | 2018-01-11 09:32 | RADIOLOGY REPORT (SQ) ---
EXAM DESCRIPTION: ACUTE ABDOMEN SERIES COMPLETED DATE/TIME: 01/11/2018 8:54 am REASON FOR STUDY: side pain COMPARISON: None. NUMBER OF VIEWS: Three views. TECHNIQUE: Frontal chest, supine abdomen and upright/decubitus abdomen radiographic images acquired. LIMITATIONS: None. FINDINGS: CHEST: Lungs clear of infiltrates. FREE AIR: None. No abnormal gas collections. BOWEL GAS PATTERN: Nonobstructive pattern. No dilated loops or air fluid levels. CALCIFICATIONS: No suspicious calcifications. HARDWARE: See separate report of the date. SOFT TISSUES: No gross mass or suggestion of organomegaly. BONES: No acute fracture. No worrisome bone lesions. OTHER: No other significant finding. IMPRESSION: NO RADIOGRAPHIC EVIDENCE FOR ACUTE ABDOMINAL DISEASE. TECHNICAL DOCUMENTATION: JOB ID: [id number] [employer]- All Rights Reserved Reading location - IP/workstation name: [email or web address]
[2018-01-11 09:59] VITALS: BP 156/84
== END 2018-01-11 09:59 | disposition home or self-care (01) ==
LOC: ER 08:02
DX: M54.5 Low back pain (principal); G89.29 Other chronic pain; M25.551 Pain in right hip; I10 Essential (primary) hypertension; E11.9 Type 2 diabetes mellitus without complications
CPT/HCPCS: 99283; 96372; 74022; 72100; 72070; J3010

== ENCOUNTER 2018-02-19 14:55 | Emergency (ER) | payer MEDICARE ==
[2018-02-19] MEDS ORDERED: HYDROCODONE/ACETAMINOPHEN 5-325 MG TABLET PO ONE (16:35)
--- NOTE | 2018-02-19 16:44 | ER Document Report ---
ED Hand/Wrist Injury - General Chief Complaint: Hand Pain Stated Complaint: RIGHT MIDDLE FINGER PAIN Time Seen by Provider: 02/19/18 15:39 Mode of Arrival: Ambulatory Information source: Patient Notes: 62-year-old man presents to ED for complaint of locked trigger finger on his right middle finger. He states he cannot straighten the finger in the last time this happened he went to the doctor and they gave him a steroid injection into the tendon sheath and his finger was able to straighten out. None of the providers in the emergency room at this time do trigger finger injections. Consulted orthopedics and they stated that the patient could follow-up in the orthopedic office on Thursday. TRAVEL OUTSIDE OF THE [place] IN LAST 30 DAYS: No - HPI Injury to: Middle finger - right Onset: This morning Timing: Still present Quality of pain: Cramping Severity: Moderate Pain Level: 4 - Related Data Allergies/Adverse Reactions: No Known Allergies Allergy (Verified 08/15/17 19:55) Past Medical History - General Information source: Patient - Social History Smoking Status: Never Smoker Chew tobacco use (# tins/day): No Frequency of alcohol use: None Drug Abuse: None Occupation: Retired Lives with: Family Family History: CAD, Malignancy, Other - ALS-brother Patient has suicidal ideation: No Patient has homicidal ideation: No - Past Medical History Cardiac Medical History: Reports: Hx Hypertension Pulmonary Medical History: Reports: None EENT Medical History: Reports: None Neurological Medical History: Reports: None Endocrine Medical History: Reports: 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 Renal/ Medical History: Reports: Other - kidney cyst Malignancy Medical History: Reports None GI Medical History: Reports: Hx Colonoscopy, Hx Endoscopy Musculoskeltal Medical History: Reports Hx Arthritis, Reports Hx Musculoskeletal Deformity, Reports Hx Musculoskeletal Trauma Skin Medical History: Reports None Psychiatric Medical History: Reports: None Traumatic Medical History: Reports: None Infectious Medical History: Reports: None Past Surgical History: Reports: Hx Cholecystectomy, Hx Gastric Bypass Surgery, Hx Orthopedic Surgery - Back Surgery x6 - Immunizations Immunizations up to date: Yes Hx Diphtheria, Pertussis, Tetanus Vaccination: No Hx Pneumococcal Vaccination: 08/17/11 Review of Systems - Review of Systems Constitutional: No symptoms reported EENT: No symptoms reported Cardiovascular: No symptoms reported Respiratory: No symptoms reported Gastrointestinal: No symptoms reported Genitourinary: No symptoms reported Male Genitourinary: No symptoms reported Musculoskeletal: Other - Third finger right hand locked in flexion, patient has history of trigger finger. He states he is gotten injections into the tendon sheath before the release this. Skin: No symptoms reported Hematologic/Lymphatic: No symptoms reported Neurological/Psychological: No symptoms reported Physical Exam - Vital signs Vitals: Temp Pulse Resp BP Pulse Ox 98.6 F 98 14 160/84 H 97 02/19/18 15:12 02/19/18 15:12 02/19/18 15:12 02/19/18 15:12 02/19/18 15:12 Interpretation: Normal - General General appearance: Appears well, Alert - HEENT Head: Normocephalic, Atraumatic Eyes: Normal Pupils: PERRL - Respiratory Respiratory status: No respiratory distress Chest status: Nontender Breath sounds: Normal Chest palpation: Normal - Cardiovascular Rhythm: Regular Heart sounds: Normal auscultation Murmur: No - Abdominal Inspection: Normal Distension: No distension Bowel sounds: Normal Tenderness: Nontender Organomegaly: No organomegaly - Back Back: Normal, Nontender - Extremities General upper extremity: Normal color, Normal temperature General lower extremity: Normal inspection, Nontender, Normal color, Normal ROM , Normal temperature, Normal weight bearing. No: Nandini's sign Hand: Tender, No evidence of human bite, No evidence of FB, Tendon deficit - Trigger finger locked in flexion to the third finger on the right hand - Neurological Neuro grossly intact: Yes Cognition: Normal Orientation: AAOx4 Palmetto Coma Scale Eye Opening: Spontaneous Palmetto Coma Scale Verbal: Oriented Aravind Coma Scale Motor: Obeys Commands Aravind Coma Scale Total: 15 Speech: Normal Motor strength normal: LUE, RUE, LLE, RLE Sensory: Normal - Psychological Associated symptoms: Normal affect, Normal mood - Skin Skin Temperature: Warm Skin Moisture: Dry Skin Color: Normal Course - Re-evaluation Re-evalutation: 02/19/18 16:56 Consulted all providers in the emergency room no one is trained to do trigger finger steroid injections. Consulted orthopedics who stated that the patient could come to his office on Thursday to have the injection completed. When attempting to prevent the finger from going into tighter flexion I was placing a rolled washcloth under the finger. While placing the washcloth and his finger his finger popped open is fully extended. Patient was then treated with a finger splint and Ririe for his discomfort. Patient was sent home with a prescription for Ririe. Patient instructed to call orthopedics first thing Thursday morning to get an appointment for trigger finger injection and to discuss definitive care for this trigger finger. - Vital Signs Vital signs: Temp Pulse Resp BP Pulse Ox 98.4 F 92 18 152/86 H 100 02/19/18 16:58 02/19/18 16:58 02/19/18 16:58 02/19/18 16:58 02/19/18 16:58 Procedures - Immobilization Right Finger 3rd digit Time completed: 16:59 Pre-Proc Neuro Vasc Exam: Normal Immobilizer type: Finger splint (Static) Performed by: PCT Post-Proc Neuro Vasc Exam: Normal Alignment checked and good: Yes Discharge - Discharge Clinical Impression: Trigger finger, right middle finger Condition: Stable Disposition: HOME, SELF-CARE Additional Instructions: You were seen today for a trigger finger to your right middle finger. No provided in the emergency room work in today does trigger finger injections. Have consulted the career information specialist and they stated that you can be seen in the office on Thursday. While attempting to place a washcloth in your hand, to prevent the tendon from tightening anymore your finger released. We have splinted your finger to prevent it from locking again until you can be seen by the career information specialist. SPLINT PRECAUTIONS: A splint has been placed. This will protect the area while healing begins. Keep the splint on ALL THE TIME until instructed to remove it by the doctor. Follow-up with the career information specialist on Thursday as instructed. Please call first thing in the morning Thursday to get seen on Thursday USE OF [id number]-[id number]-SYPCPTC IBUPROFEN: Ibuprofen (Advil, Nuprin, Medipren, Motrin IB) is a medication for fever and pain control. In addition, it has anti- inflammatory effects which may be beneficial, especially in the treatment of injuries. It's best to take ibuprofen with food. Persons with ulcer disease or allergy to aspirin should notify their physician of this before taking ibuprofen. Ibuprofen can be given every four to six hours, for a total of four doses daily. Age Pain or fever dose Antiinflammatory dose 6-8 yr 200 mg (1 tab) 200 mg (1 tab) 9-11 yr 200 mg (1 tab) 200-400 mg (1-2 tab) 11-14 yr 200-400 mg (1-2 tab) 400 mg (2 tab) 15-adult 400 mg (2 tab) 600 mg (3 tab) ORAL NARCOTIC MEDICATION: You have been given a prescription for pain control. This medication is a narcotic. It's best taken with food, as nausea can result if taken on an empty stomach. Don't operate machinery or drive within six hours of taking this medication. Do not combine this medicine with alcohol, or with any medication which can cause sedation (such as cold tablets or sleeping pills) unless you get permission from the physician. Narcotics tend to cause constipation. If possible, drink plenty of fluids and eat a diet high in fiber and fruits. Please be aware that prescription narcotics also have the potential for abuse. People become addicted to these medications because of the general sense of wellbeing that they induce. This feeling along with a significant reduction in tension, anxiety, and aggression provides a stimulating seductive quality to these drugs. Once your pain is under control, we encourage you to discard your unused narcotics. FOLLOW-UP CARE: If you have been referred to a physician for follow-up care, call the physician s office for an appointment as you were instructed or within the next two days. If you experience worsening or a significant change in your symptoms, notify the physician immediately or return to the Emergency Department at any time for re-evaluation. Prescriptions: Hydrocodone/Acetaminophen [Ririe 5-325 mg Tablet] 1 tab PO Q6HP PRN #10 tablet PRN Reason: Forms: Elevated Blood Pressure Referrals: REUBEN MUSA MD [ACTIVE STAFF] - 02/23/18
[2018-02-19 16:59] VITALS: BP 152/86
== END 2018-02-19 16:59 | disposition home or self-care (01) ==
LOC: ER 14:55
PROC: 2W3JX1Z Immobilization of Right Finger using Splint (ICD-10-PCS; principal; 2018-02-19)
DX: M65.331 Trigger finger, right middle finger (principal); M79.644 Pain in right finger(s); I10 Essential (primary) hypertension; E11.9 Type 2 diabetes mellitus without complications; Z98.84 Bariatric surgery status; M19.90 Unspecified osteoarthritis, unspecified site; Z90.49 Acquired absence of other specified parts of digestive tract
CPT/HCPCS: 29130; 99283; A9270